=== PATIENT | male | born 1980 | race Caucasian/White ===

== ENCOUNTER 2016-08-08 21:40 | Emergency (ER) | payer OTHER ==
[~2016-08-08] VITALS: Ht 182.9 cm; Wt 96.2 kg
[~2016-08-08 21:40] MED LIST: AGM875T PO; NAPR500T3 PO; TRAM-42 PO
[2016-08-08] MEDS ORDERED: LISI-552 (21:56)
[2016-08-08] MEDS ORDERED: ASPIRIN 81 MG CHEW (CHILDREN'S ASA) PO ONE (22:00)
[2016-08-08 22:07] LABS: BASOPHILS # (AUTO) 0.1 10^3/uL (0.0-0.1); BASOPHILS % (AUTO) 1 % (0-10); EOSINOPHILS # (AUTO) 0.4 10^3/uL (0.0-0.3); EOSINOPHILS % (AUTO) 3 % (0-10); LYMPHOCYTES # (AUTO) 3.9 X 10^3 (1.0-4.0); LYMPHOCYTES % (AUTO) 30 % (12-44); MEAN CORPUSCULAR HEMOGLOBIN 31 PG (25-34); MEAN CORPUSCULAR HGB CONC 35 G/DL (32-36); MEAN CORPUSCULAR VOLUME 89 FL (80-99); MEAN PLATELET VOLUME 9.1 FL (7.4-10.4); MONOCYTES % (AUTO) 8 % (0-12); NEUTROPHILS # (AUTO) 7.5 X 10^3 (1.8-7.8); NEUTROPHILS % (AUTO) 58 % (42-75); PLATELET COUNT 343 10^3/uL (130-400); RED BLOOD COUNT 5.13 10^6/uL (4.35-5.85); RED CELL DISTRIBUTION WIDTH 12.8 % (10.0-14.5); WHITE BLOOD COUNT 12.9 10^3/uL (4.3-11.0)
[2016-08-08 22:17] LABS: PROTHROMBIN TIME PATIENT 12.4 SEC (12.2-14.7)
[2016-08-08 22:29] LABS: ALANINE AMINOTRANSFERASE 86 U/L (0-55); ALBUMIN 4.3 G/DL (3.2-4.5); ANION GAP 14 MMOL/L (5-14); ASPARTATE AMINO TRANSFERASE 37 U/L (5-34); BILIRUBIN,TOTAL 0.2 MG/DL (0.1-1.0); BLOOD UREA NITROGEN 15 MG/DL (7-18); BUN/CREATININE RATIO 9; CALCIUM 9.9 MG/DL (8.5-10.1); CARBON DIOXIDE 19 MMOL/L (21-32); CHLORIDE 106 MMOL/L (98-107); GFR ESTIMATED 47; GLUCOSE 160 MG/DL (70-105); MAGNESIUM 2.5 MG/DL (1.8-2.4); POTASSIUM 4.3 MMOL/L (3.6-5.0); SODIUM 139 MMOL/L (135-145)
[2016-08-08] MEDS ORDERED: NS IV 1000 ML 1,000 ML IV ONE (22:58)
[2016-08-08] MEDS ORDERED: PRD20T PO (23:44)
--- NOTE | 2016-08-08 23:44 | ED Chest Pain ---
General Chief Complaint: Cardiac/General Problems Stated Complaint: SOA CHEST PAIN BLURRED VISION Nursing Triage Note: Patient reports chest pain x 1 week. patient reports was evaluated in ED in [place] on the for same problem and is scheduled for stress test. patient reports having bilaterally blurred vision starting this morning at 1030. patient reports blurry vision is intermittent Nursing Sepsis Screen: No Definite Risk Source: patient Exam Limitations: no limitations History of Present Illness Time seen by provider: 21:41 Initial Comments This 35-year-old gentleman presents to the emergency room with complaints of chest pain. The pain started on August 01 and consists of sharp pain in the left chest. It radiates to the shoulder. He has experienced associated nausea , dizziness, and shortness of air and it is worse with deep breathing. He also had a recent episode of diarrhea. He also reports bilateral blurry vision that is intermittent along with headache. Blurry vision is not present at this time. He has a ill child at home with bronchitis. He reports having some cough and fever. He has been coughing since treated with strep one month ago. Patient was seen for chest pain in [place] recently as well. He has been seen by Dr. Childesr (food production associate) and has a stress test scheduled. Patient admits to smoking and remote use of methamphetamines and THC. He denies alcohol use. He also has chronic right-sided abdominal pain from a mesh hernia repair. Allergies and Home Medications Allergies Coded Allergies: acetaminophen (Unverified Allergy, Unknown, 11/19/14) hydrocodone (Unverified Allergy, Unknown, 11/19/14) Home Medications Lisinopril 20 Mg Tablet, #30 (Reported) Prednisone 20 Mg Tab, 20 MG PO DAILY, #4 Prescribed by: NITESH AUSTIN on 08/08/16 2919 Review of Systems Constitutional: see HPI EENTM: See HPI Respiratory: See HPI Cardiovascular: See HPI Gastrointestinal: See HPI Genitourinary: No Symptoms Reported Musculoskeletal: no symptoms reported Skin: no symptoms reported Psychiatric/Neurological: See HPI Past Oncyfzp-Qrzllc-Jiqeun Hx Patient Social History Alcohol Use: Occasionally Uses Recreational Drug Use: No Smoking Status: Current Everyday Smoker Type Used: Cigarettes Recent Foreign Travel: No Contact w/Someone Who Travel: No Recent Infectious Disease Expo: No Recent Hopitalizations: Yes Surgeries HX Surgeries: Yes (HERNIA REPAIR) Surgeries: Abdominal, Tonsillectomy Respiratory Hx Respiratory Disorders: No Cardiovascular Hx Cardiac Disorders: Yes Cardiac Disorders: Hypertension Neurological Hx Neurological Disorders: No Reproductive System Hx Reproductive Disorders: No Sexually Transmitted Disease: No Genitourinary Hx Genitourinary Disorders: No Gastrointestinal Hx Gastrointestinal Disorders: No Musculoskeletal Hx Musculoskeletal Disorders: No Endocrine Hx Endocrine Disorders: No HEENT HX ENT Disorders: No Cancer Hx Cancer: No Psychosocial Hx Psychiatric Problems: Yes Behavioral Health Disorders: Anxiety, Depression Integumentary HX Skin/Integumentary Disorder: No Blood Transfusions Hx Blood Disorders: No Family Medical History Significant Family History: Heart Disease, DVT/PE, Diabetes, Hypertension Physical Exam Vital Signs Vital Sign - Last 12Hours Capillary Refill : Less Than 3 Seconds General Appearance: No Apparent Distress, WD/WN HEENT: PERRL/EOMI, Normal ENT Inspection Neck: Normal Inspection Respiratory: Lungs Clear, Normal Breath Sounds, No Accessory Muscle Use, No Respiratory Distress, Other (some anterior chest wall tenderness to palpation) Cardiovascular: Regular Rate, Rhythm, No Edema, No Murmur Gastrointestinal: Other (chronic abdominal pain from hernia repair) Extremity: Normal Inspection, No Pedal Edema, Calf Tenderness (right side) Neurologic/Psychiatric: Alert, Oriented x3, No Motor/Sensory Deficits, Normal Mood/Affect, unloader II-XII Norm as Tested Skin: Normal Color, Warm/Dry Progress/Results/Core Measures Results/Orders Lab Results Laboratory Tests Test 08/08/16 22:00 Range/Units White Blood Count 12.9 H 4.3-11.0 10^3/uL Red Blood Count 5.13 4.35-5.85 10^6/uL Hemoglobin 16.0 13.3-17.7 G/DL Hematocrit 46 40-54 % Mean Corpuscular Volume 89 80-99 FL Mean Corpuscular Hemoglobin 31 25-34 PG Mean Corpuscular Hemoglobin Concent 35 32-36 G/DL Red Cell Distribution Width 12.8 10.0-14.5 % Platelet Count 343 130-400 10^3/uL Mean Platelet Volume 9.1 7.4-10.4 FL Neutrophils (%) (Auto) 58 42-75 % Lymphocytes (%) (Auto) 30 12-44 % Monocytes (%) (Auto) 8 0-12 % Eosinophils (%) (Auto) 3 0-10 % Basophils (%) (Auto) 1 0-10 % Neutrophils # (Auto) 7.5 1.8-7.8 X 10^3 Lymphocytes # (Auto) 3.9 1.0-4.0 X 10^3 Monocytes # (Auto) 1.0 0.0-1.0 X 10^3 Eosinophils # (Auto) 0.4 H 0.0-0.3 10^3/uL Basophils # (Auto) 0.1 0.0-0.1 10^3/uL Prothrombin Time 12.4 12.2-14.7 SEC INR Comment 1.0 0.8-1.4 Activated Partial Thromboplast Time 28 24-35 SEC D-Dimer 0.37 0.00-0.49 UG/ML Sodium Level 139 135-145 MMOL/L Potassium Level 4.3 3.6-5.0 MMOL/L Chloride Level 106 98-107 MMOL/L Carbon Dioxide Level 19 L 21-32 MMOL/L Anion Gap 14 5-14 MMOL/L Blood Urea Nitrogen 15 7-18 MG/DL Creatinine 1.70 H 0.60-1.30 MG/DL Estimat Glomerular Filtration Rate 47 BUN/Creatinine Ratio 9 Glucose Level 160 H 70-105 MG/DL Calcium Level 9.9 8.5-10.1 MG/DL Magnesium Level 2.5 H 1.8-2.4 MG/DL Total Bilirubin 0.2 0.1-1.0 MG/DL Aspartate Amino Transf (AST/SGOT) 37 H 5-34 U/L Alanine Aminotransferase (ALT/SGPT) 86 H 0-55 U/L Alkaline Phosphatase 91 40-136 U/L Myoglobin 24.0 10.0-92.0 NG/ML Troponin I < 0.30 <0.30 NG/ML C-Reactive Protein High Sensitivity 0.65 H 0.00-0.50 MG/DL Total Protein 8.0 6.4-8.2 G/DL Albumin 4.3 3.2-4.5 G/DL Micro Results Microbiology 08/08/16 Influenza Types A,B Antigen (KAMRYN) - Final, Complete My Orders Orders - NITESH SULLIVAN MD Cbc With Automated Diff (08/08/16 21:59) Magnesium (08/08/16 21:59) Ekg Tracing (08/08/16 21:59) Cardiac Profile 1 (08/08/16 21:59) Comprehensive Metabolic Panel (08/08/16 21:59) Myoglobin Serum (08/08/16 21:59) Protime With Inr (08/08/16 21:59) Partial Thromboplastin Time (08/08/16 21:59) O2 (08/08/16 21:59) Monitor-Rhythm Ecg Trace Only (08/08/16 21:59) Aspirin Chewable Tablet (Baby Aspirin Ch (08/08/16 22:00) Saline Lock/Iv-Start (08/08/16 21:59) Chest Pa/Lat (2 View) (08/08/16 22:09) Hs C Reactive Protein (08/08/16 22:43) Influenza A And B Antigens (08/08/16 22:44) Ns Iv 1000 Ml (Sodium Chloride 0.9%) (08/08/16 22:58) Fibrin Degradation Products (08/08/16 22:58) Prednisone Tablet (Deltasone Tablet) (08/08/16 23:45) Medications Given in ED Vital Signs/I&O Vital Sign - Last 12Hours 08/08/16 08/08/16 08/08/16 21:50 21:50 23:49 Temp 98.7 Pulse 87 74 Resp 18 20 B/P (MAP) 157/93 Pulse Ox 95 98 O2 Delivery Room Air Room Air Blood Pressure Mean: 114 Progress Note : Progress Note 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 Creatinine was 1.7 with no prior value on his chart. IV fluids were initiated. Prednisone was started for treatment of the chest pain. He is advised to keep his scheduled stress test. Pain was atypical in nature but he was advised to pursue the stress test because of his risk factors. Blurry vision was not present at the time of encounter. He was advised to follow-up with his eye doctor. ECG Initial ECG Impression Date: Aug 08, 2016 Initial ECG Impression Time: 21:57 Initial ECG Rate: 79 Initial ECG Rhythm: Normal Sinus Initial ECG Intervals: Normal Initial ECG Impression: Normal Comment Normal sinus rhythm with no ST elevation or depression. No abnormal intervals or axis deviation. Diagnostic Imaging Diagonstic Imaging: Xray Plain Films/CT/US/NM/MRI: chest Comments Two-view chest x-ray viewed by me and report not available. No acute abnormalities appreciated. Departure Impression Impression: Primary Impression: Chest wall pain Additional Impression: Renal insufficiency Disposition: 01 HOME, SELF-CARE Condition: Improved Departure-Patient Inst. Decision time for Depature: 23:40 Referrals: BANDAR WHEELER (PCP) Primary Care Physician Patient Instructions: Chest Pain That Is Not Caused by the Heart (DC) Add. Discharge Instructions: Use the prednisone as prescribed. Take with food or milk to avoid irritation on your stomach. Avoid taking close to bedtime as that may disrupt sleep. Follow-up with your primary care provider soon as possible. Please also follow through with the planned stress test. This is important due to your family history and smoking history. Work toward quitting smoking as soon as possible. Return to the emergency room if symptoms worsen. You may continue taking your hydrocodone as prescribed but avoid use of NSAIDs such as naproxen or ibuprofen as much as possible. You may continue to take a baby aspirin daily. All discharge instructions reviewed with patient and/or family. Voiced understanding. Scripts Prednisone (Prednisone) 20 Mg Tab 20 MG PO DAILY, #4 TAB Prov: NITESH SULLIVAN MD 08/08/16 Copy Copies To 1: NANCY LAKHANI JOSHUA T MD Aug 08, 2016 23:44
[2016-08-08] MEDS ORDERED: predniSONE 20 MG TAB PO ONE (23:45)
[2016-08-08 23:49] VITALS: BP 150/92
--- NOTE | 2016-08-09 06:38 | Diagnostic Imaging Report ---
INDICATION: Chest pain. COMPARISON: None available. TECHNIQUE: 2 radiographs of the chest dated August 08, 2016 FINDINGS: The cardiac silhouette is within normal limits. No significant pulmonary vascular congestion. The lungs are clear. No pleural effusion. No pneumothorax. No acute osseous abnormality. IMPRESSION: No acute cardiopulmonary abnormality. Dictated by: Dictated on workstation # [id number]
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
== END 2016-08-08 23:52 | disposition home or self-care (01) ==
LOC: EDUNIT# 21:40 → ER 21:44
DX: R07.89 Other chest pain (principal); N28.9 Disorder of kidney and ureter, unspecified; I10 Essential (primary) hypertension; F17.210 Nicotine dependence, cigarettes, uncomplicated
CPT/HCPCS: 36415; 71020; 80053; 83735; 83874; 84484; 85025; 85379; 85610; 85730; 86141; 87804; 93005; 93041; 96360; 96361

== ENCOUNTER 2017-11-12 11:37 | Emergency (ER) | payer OTHER ==
[~2017-11-12] VITALS: Ht 182.9 cm; Wt 99.8 kg
[~2017-11-12 11:37] MED LIST changes: +ASPI-586 PO; +LISI-552; +NAPR-915 PO; -NAPR500T3 PO; +PARO25TA14 PO; +PRD20T PO; +VARE1TAB21 PO
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
[2017-11-12] MEDS ORDERED: fentaNYL INJECTION 100 MCG/2 ML AMP IM ONE (13:00)
--- NOTE | 2017-11-12 13:06 | Diagnostic Imaging Report ---
INDICATION: Low back pain. History of previous, old injury with herniated disc. TECHNIQUE: AP, Lateral and Spot imaging of the lumbar spine CORRELATION STUDY: None FINDINGS: The lumbar spinal curvature and alignment are within normal limits. Vertebral body heights and disc spaces are maintained. No fracture or malalignment is seen. IMPRESSION: Unremarkable radiographic examination of the lumbar spine. Dictated by: Dictated on workstation # [id number]
[2017-11-12] MEDS ORDERED: PRD20T PO (13:15)
[2017-11-12] MEDS ORDERED: TRAM50TA2 PO (13:15)
[2017-11-12 13:23] VITALS: BP 154/97
== END 2017-11-12 13:28 | disposition home or self-care (01) ==
LOC: EDUNIT# 11:37 → ER 11:41
DX: M54.5 Low back pain (principal); E78.00 Pure hypercholesterolemia, unspecified; I10 Essential (primary) hypertension; F41.9 Anxiety disorder, unspecified; F32.9 Major depressive disorder, single episode, unspecified; Z77.22 Contact with and (suspected) exposure to environmental tobacco smoke (acute) (chronic); Z90.89 Acquired absence of other organs; Z82.49 Family history of ischemic heart disease and other diseases of the circulatory system; Z88.6 Allergy status to analgesic agent
CPT/HCPCS: 36415; 72100; 85652; 96372

== ENCOUNTER 2018-04-25 17:25 | Emergency (ER) | payer SELFPAY ==
[~2018-04-25] VITALS: Ht 182.9 cm; Wt 97.5 kg
[~2018-04-25 17:25] MED LIST changes: +TRAM50TA2 PO
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
[2018-04-25] MEDS ORDERED: LOSA25TA6 PO (17:45)
[2018-04-25] MEDS ORDERED: TIZA4CAP8 PO (17:45)
[2018-04-25] MEDS ORDERED: OMEP20CA12 PO (17:45)
[2018-04-25] MEDS ORDERED: PARO12.519 PO (17:45)
--- NOTE | 2018-04-25 18:10 | Diagnostic Imaging Report ---
Clinical indication: Patient kicked a wall and has pain all over ankle and foot. Exams: 1: X-ray of the right ankle, 3 views. 2: X-ray of the right foot, 3 views. Comparison: X-ray of the right ankle dated 01/03/2015. Findings: There is no evidence of acute fracture or dislocation of the right ankle or foot. There are hypertrophic spurs involving the inferior aspects of the lateral malleolus and medial malleolus. There is no significant soft tissue abnormality seen. Impression: 1: X-ray of the right foot and right ankle shows no acute fracture or dislocation. 2: There are hypertrophic spurs involving the medial and lateral malleolar regions. Dictated by: Dictated on workstation # [id number]
--- NOTE | 2018-04-25 18:50 | ED Lower Extremity ---
General Chief Complaint: Lower Extremity Stated Complaint: R ANKLE INJ Nursing Triage Note: R FOOT AND R ANKLE PAIN FROM KICKING WALL TODAY Nursing Sepsis Screen: No Definite Risk Source: patient Exam Limitations: no limitations History of Present Illness Date Seen by Provider: Apr 25, 2018 Time Seen by Provider: 17:30 Initial Comments Patient is 37-year-old male who presents to the emergency room with complaints of right ankle pain and swelling from kicking a wall. Onset: this afternoon Pain/Injury Location: right foot, right ankle Method of Injury: direct blow Modifying Factors: Worse With Movement Allergies and Home Medications Allergies Coded Allergies: No Known Drug Allergies (Unverified , 04/25/18) Home Medications Losartan Potassium 25 Mg Tablet, Unknown Dose PO DAILY, (Reported) Patient Home Medication List Home Medication List Reviewed: Yes Review of Systems Constitutional: no symptoms reported, see HPI Musculoskeletal: see HPI, joint pain, joint swelling All Other Systems Reviewed Negative Unless Noted: Yes Past Mtwvael-Mbaqoa-Kuehtb Hx Past Med/Social Hx: Reviewed Nursing Past Med/Soc Hx Patient Social History Alcohol Use: Denies Use Recreational Drug Use: Yes (POT) Smoking Status: Current Everyday Smoker Type Used: Cigarettes 2nd Hand Smoke Exposure: Yes Recent Foreign Travel: No Contact w/Someone Who Travel: No Recent Infectious Disease Expo: No Recent Hopitalizations: No Immunizations Up To Date Tetanus Booster (TDap): Unknown Seasonal Allergies Seasonal Allergies: No Past Medical History Surgeries: Yes (HERNIA REPAIR) Abdominal, Tonsillectomy Respiratory: No Cardiac: Yes High Cholesterol, Hypertension Neurological: No Reproductive Disorders: No Sexually Transmitted Disease: No Genitourinary: No Gastrointestinal: No Musculoskeletal: No Endocrine: No HEENT: No Cancer: No Psychosocial: Yes Anxiety, Depression Integumentary: No Blood Disorders: No Family Medical History Reviewed Nursing Family Hx Heart Disease, DVT/PE, Diabetes, Hypertension Physical Exam Vital Signs Vital Signs - First Documented 04/25/18 17:30 Temp 97.1 Pulse 98 Resp 18 B/P (MAP) 167/99 (121) Pulse Ox 99 Capillary Refill : Less Than 3 Seconds Height, Weight, BMI Height: 6'0" Weight: 215lbs. oz. 97.808995xk; 24.41 BMI Method:Stated General Appearance: WD/WN, no apparent distress Cardiovascular: normal peripheral pulses, regular rate, rhythm, no edema, no gallop, no JVD, no murmur Respiratory: chest non-tender, lungs clear, normal breath sounds, no respiratory distress, no accessory muscle use Ankles: right ankle pain, right ankle soft tissue tenderness, right ankle swelling Feet: right foot pain, right foot soft tissue tenderness, right foot swelling Neurologic/Psychiatric: alert, normal mood/affect, oriented x 3 Skin: normal color, warm/dry normal capillary refill and distal pulses. Progress/Results/Core Measures Results/Orders My Orders Orders - MICHELLE PARKER Ankle, Right, 3 Views (04/25/18 17:30) Foot, Right, 3 View (04/25/18 17:33) Tramadol Tablet (Ultram Tablet) (04/25/18 18:00) Medications Given in ED Vital Signs/I&O 04/25/18 04/25/18 17:30 18:57 Temp 97.1 97.1 Pulse 98 98 Resp 18 18 B/P (MAP) 167/99 (121) 167/99 (121) Pulse Ox 99 99 Blood Pressure Mean: 121 Progress Progress Note : Time: 18:49 Progress Note I have seen and evaluated the patient. I have informed him of imaging studies. I have placed him in an dayday bandage and air stirrup. He has crutches at home. He agrees with plan of care, plans for discharge. Return precautions were given. Diagnostic Imaging Diagonstic Imaging: Xray Plain Films/CT/US/NM/MRI: ankle (foot) Comments NAME: ISHAN OMALLEY [facility] REC#: [id number] PHYSICIAN: MICHELLE PARKER CC: MICHELLE PARKER; JACK GEIGER MD Page 1 of 1 RADIOLOGY REPORT [facility] [place] CC: MICHELLE PARKER; JACK GEIGER MD Page 1 of 1 RADIOLOGY REPORT NAME: ISHAN OMALLEY [facility] REC#: [id number] PT STATUS: REG ER : 1980 PHYSICIAN: MICHELLE PARKER ADMIT DATE: 04/25/18/ER Signed Date of Exam: 04/25/18 FOOT, RIGHT, 3 VIEW Clinical indication: Patient kicked a wall and has pain all over ankle and foot. Exams: 1: X-ray of the right ankle, 3 views. 2: X-ray of the right foot, 3 views. Comparison: X-ray of the right ankle dated 01/03/2015. Findings: There is no evidence of acute fracture or dislocation of the right ankle or foot. There are hypertrophic spurs involving the inferior aspects of the lateral malleolus and medial malleolus. There is no significant soft tissue abnormality seen. Impression: 1: X-ray of the right foot and right ankle shows no acute fracture or dislocation. 2: There are hypertrophic spurs involving the medial and lateral malleolar regions. Dictated by: Dictated on workstation # [id number] Dict: 04/25/181805 Trans: 04/25/181807 Interpreted by: JACK GEIGER MD Electronically signed by: JACK GEIGER MD 04/25/181807 Reviewed: Reviewed by Me Departure Impression Primary Impression: Right ankle sprain Disposition: 01 HOME, SELF-CARE Condition: Stable/Unchanged Departure-Patient Inst. Decision time for Depature: 18:49 Referrals: [facility]/K (PCP/Family) Primary Care Physician Patient Instructions: Ankle Sprain (DC) Add. Discharge Instructions: You may use ibuprofen and Tylenol as directed by the bottle for pain relief. Wear the Dayday bandage and air stirrup as needed for comfort. You should crutches at home as needed. Return back to the emergency room for any worsening symptoms or concerns as needed. All discharge instructions reviewed with patient and/or family. Voiced understanding. MICHELLE PARKER Apr 25, 2018 18:50
[2018-04-25 18:57] VITALS: BP 167/99
== END 2018-04-25 18:57 | disposition home or self-care (01) ==
LOC: EDUNIT# 17:25 → ER 17:26
DX: S93.401A Sprain of unspecified ligament of right ankle, initial encounter (principal); E78.00 Pure hypercholesterolemia, unspecified; I10 Essential (primary) hypertension; F41.9 Anxiety disorder, unspecified; F32.9 Major depressive disorder, single episode, unspecified; F12.10 Cannabis abuse, uncomplicated; F17.210 Nicotine dependence, cigarettes, uncomplicated; Z98.890 Other specified postprocedural states; Z82.49 Family history of ischemic heart disease and other diseases of the circulatory system; Z90.89 Acquired absence of other organs; W22.01XA Walked into wall, initial encounter
CPT/HCPCS: 73610; 73630

== ENCOUNTER 2018-06-28 17:16 | Emergency (ER) | payer SELFPAY ==
[~2018-06-28] VITALS: Ht 182.9 cm; Wt 95.3 kg
[~2018-06-28 17:16] MED LIST changes: +LOSA25TA41 PO; +OMEP20CA12 PO; +PARO12.519 PO; +TIZA4CAP8 PO
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
--- NOTE | 2018-06-28 17:23 | NUR ---
report given to Kasandra Sorensen
[2018-06-28] MEDS ORDERED: ASPIRIN 81 MG CHEW (CHILDREN'S ASA) PO ONE (17:30)
[2018-06-28] MEDS ORDERED: LOSARTAN 50 MG (COZAAR) TAB PO ONE (17:30)
[2018-06-28] MEDS ORDERED: LORazepam INJ 2 MG/ML (ATIVAN) VIAL IVP ONE (17:30)
[2018-06-28 17:31] LABS: BASOPHILS # (AUTO) 0.1 10^3/uL (0.0-0.1); BASOPHILS % (AUTO) 1 % (0-10); EOSINOPHILS # (AUTO) 0.3 10^3/uL (0.0-0.3); EOSINOPHILS % (AUTO) 2 % (0-10); HEMATOCRIT 47 % (40-54); HEMOGLOBIN 16.8 G/DL (13.3-17.7); LYMPHOCYTES % (AUTO) 29 % (12-44); MEAN CORPUSCULAR HEMOGLOBIN 32 PG (25-34); MEAN CORPUSCULAR HGB CONC 36 G/DL (32-36); MEAN CORPUSCULAR VOLUME 90 FL (80-99); MEAN PLATELET VOLUME 8.7 FL (7.4-10.4); MONOCYTES # (AUTO) 1.4 X 10^3 (0.0-1.0); MONOCYTES % (AUTO) 10 % (0-12); NEUTROPHILS # (AUTO) 8.2 X 10^3 (1.8-7.8); NEUTROPHILS % (AUTO) 58 % (42-75); PLATELET COUNT 334 10^3/uL (130-400); RED CELL DISTRIBUTION WIDTH 12.9 % (10.0-14.5)
[2018-06-28 17:44] LABS: PROTHROMBIN TIME PATIENT 12.8 SEC (12.2-14.7)
--- NOTE | 2018-06-28 17:51 | ED Chest Pain ---
General Chief Complaint: Chest Pain Stated Complaint: CHEST PAIN Nursing Triage Note: PT AMBULATED TO ROOM 9 WITH COMPLAINT OF CP AND SOA. PT STATES SYMPTOMS STARTED LAST NIGHT. PT STATES HE TOOK HIS BLOOD PRESSURE AND IT WAS HIGH. DOES NOT REMEMBER WHAT IT WAS. ALSO COMPLAINING OF HEADACHE AND BLURRED VISION. Nursing Sepsis Screen: No Definite Risk Source: patient Exam Limitations: no limitations (MELODY QUAN STUDENT) History of Present Illness Date Seen by Provider: Jun 28, 2018 Time Seen by Provider: 17:16 Initial Comments 37 y/o M presented for chest pain and shortness of breath which started last night. His chest pain is central and to the left and feels like "someone is sitting on his chest". He also has some blurry vision and a headache. He took his blood pressure at home and noted that it was high. He has a history of high blood pressure but did not take his losartan today because he was not feeling well and the losartan made it worse yesterday. He has not taken any of his medications today. He has had a lot of stress in his life lately, including separation from his spouse. He does smoke cigarettes and marijuana, more often than usual lately. He also agreed to some nausea and diarrhea. Timing/Duration: getting worse, 1-2 days Severity/Quality: severe, pressure Location: substernal, central Radiation: no radiation Activities at Onset: emotional stress Prior CP/Workup: non-cardiac Modifying Factors: worse with breathing; improves with movement, improves with rest Associated Symptoms: No abdominal pain, No diaphoresis, No fever/chills; nausea /vomiting, shortness of breath; No syncope (MELODY QUAN STUDENT) Initial Comments Reports chest pressure is been going on for 3 days related to stress. Timing/Duration: 2-3 days Severity/Quality: moderate, severe, pressure Location: substernal, central Radiation: no radiation Activities at Onset: emotional stress Prior CP/Workup: non-cardiac Modifying Factors: worse with movement; improves with rest Associated Symptoms: No diaphoresis; nausea/vomiting, shortness of breath ( ISHAN HAQ MD) Allergies and Home Medications Allergies Coded Allergies: No Known Drug Allergies (Unverified , 04/25/18) Home Medications Losartan Potassium 25 Mg Tablet, Unknown Dose PO DAILY, (Reported) Patient Home Medication List Home Medication List Reviewed: Yes (MELODY QUAN) Home Medication List Reviewed: Yes (ISHAN HAQ MD) Review of Systems Review of Systems Constitutional: No chills, No diaphoresis, No fever, No malaise EENTM: Blurred Vision; No Eye Pain, No Nose Congestion Respiratory: Denies Cough; Shortness of Air, SOA at Rest; Denies Wheezing Cardiovascular: Chest Pain (central and left sided chest pain ); Denies Edema, Denies Palpitations Gastrointestinal: Denies Abdominal Pain; Diarrhea, Nausea; Denies Vomiting Genitourinary: Denies Burning, Denies Frequency Musculoskeletal: No muscle pain, No muscle cramps Skin: No pruritus, No rash Psychiatric/Neurological: Anxiety, Headache; Denies Tremors, Denies Weakness ( MELODY QUAN) Constitutional: see HPI EENTM: See HPI, Blurred Vision; No Throat Swelling Respiratory: No Symptoms Reported; Denies Cough; Shortness of Air Cardiovascular: Chest Pain (central and left sided chest pain ); Denies Edema Gastrointestinal: Diarrhea, Nausea; Denies Vomiting Genitourinary: No Symptoms Reported Musculoskeletal: no symptoms reported Skin: no symptoms reported (ISHAN HAQ MD) All Other Systems Reviewed Negative Unless Noted: Yes (ISHAN HAQ MD) Past Rletcqd-Zxvhal-Vbzmme Hx Past Med/Social Hx: Reviewed Nursing Past Med/Soc Hx (MELODY QUAN) Past Med/Social Hx: Reviewed Nursing Past Med/Soc Hx (ISHAN HAQ MD) Patient Social History Alcohol Use: Denies Use Recreational Drug Use: Yes Drug of Choice: MARIJUANA Smoking Status: Current Everyday Smoker Type Used: Cigarettes 2nd Hand Smoke Exposure: Yes Recent Foreign Travel: No Contact w/Someone Who Travel: No Recent Infectious Disease Expo: No Recent Hopitalizations: No (MELODY QUAN) Immunizations Up To Date Tetanus Booster (TDap): Unknown (MELODY QUAN) Seasonal Allergies Seasonal Allergies: No (MELODY QUAN) Past Medical History Surgeries: Yes (HERNIA REPAIR) Abdominal, Tonsillectomy Respiratory: No Cardiac: Yes High Cholesterol, Hypertension Neurological: No Reproductive Disorders: No Sexually Transmitted Disease: No Genitourinary: No Gastrointestinal: No Musculoskeletal: No Endocrine: No HEENT: No Cancer: No Psychosocial: Yes Anxiety, Depression Integumentary: No Blood Disorders: No (MELODY QUAN STUDENT) Family Medical History Reviewed Nursing Family Hx (MELODY QUAN) Reviewed Nursing Family Hx (ISHAN HAQ MD) Heart Disease, DVT/PE, Diabetes, Hypertension (MELODY QUAN) Physical Exam Vital Signs Vital Signs - First Documented 06/28/18 17:16 Temp 98.4 Pulse 83 Resp 21 B/P (MAP) 178/113 (134) Pulse Ox 96 O2 Delivery Room Air (ISHAN HAQ MD) Vital Signs Capillary Refill : Less Than 3 Seconds (MELODY QUAN) Height, Weight, BMI Height: 6'0" Weight: 210lbs. oz. [id number]; 24.41 BMI Method:Stated (MELODY QUAN) General Appearance: Anxious, Mild Distress HEENT: PERRL/EOMI, Pharynx Normal Neck: Non Tender, Supple Respiratory: Lungs Clear, Normal Breath Sounds Cardiovascular: Regular Rate, Rhythm, No Murmur Gastrointestinal: Non Tender, Soft Extremity: Normal Range of Motion, Non Tender Neurologic/Psychiatric: Alert, Oriented x3, No Motor/Sensory Deficits Skin: Normal Color, Warm/Dry (ISHAN HAQ MD) Progress/Results/Core Measures Results/Orders Lab Results Laboratory Tests Test 06/28/18 17:24 Range/Units White Blood Count 14.0 H 4.3-11.0 10^3/uL Red Blood Count 5.26 4.35-5.85 10^6/uL Hemoglobin 16.8 13.3-17.7 G/DL Hematocrit 47 40-54 % Mean Corpuscular Volume 90 80-99 FL Mean Corpuscular Hemoglobin 32 25-34 PG Mean Corpuscular Hemoglobin Concent 36 32-36 G/DL Red Cell Distribution Width 12.9 10.0-14.5 % Platelet Count 334 130-400 10^3/uL Mean Platelet Volume 8.7 7.4-10.4 FL Neutrophils (%) (Auto) 58 42-75 % Lymphocytes (%) (Auto) 29 12-44 % Monocytes (%) (Auto) 10 0-12 % Eosinophils (%) (Auto) 2 0-10 % Basophils (%) (Auto) 1 0-10 % Neutrophils # (Auto) 8.2 H 1.8-7.8 X 10^3 Lymphocytes # (Auto) 4.0 1.0-4.0 X 10^3 Monocytes # (Auto) 1.4 H 0.0-1.0 X 10^3 Eosinophils # (Auto) 0.3 0.0-0.3 10^3/uL Basophils # (Auto) 0.1 0.0-0.1 10^3/uL Neutrophils % (Manual) 54 % Lymphocytes % (Manual) 29 % Monocytes % (Manual) 8 % Eosinophils % (Manual) 4 % Basophils % (Manual) 1 % Reactive Lymphocytes 4 % Blood Morphology Comment NORMAL Prothrombin Time 12.8 12.2-14.7 SEC INR Comment 1.0 0.8-1.4 Activated Partial Thromboplast Time 28 24-35 SEC D-Dimer 0.39 0.00-0.49 UG/ML Sodium Level 142 135-145 MMOL/L Potassium Level 4.0 3.6-5.0 MMOL/L Chloride Level 105 98-107 MMOL/L Carbon Dioxide Level 24 21-32 MMOL/L Anion Gap 13 5-14 MMOL/L Blood Urea Nitrogen 10 7-18 MG/DL Creatinine 1.16 0.60-1.30 MG/DL Estimat Glomerular Filtration Rate > 60 BUN/Creatinine Ratio 9 Glucose Level 120 H 70-105 MG/DL Calcium Level 10.3 H 8.5-10.1 MG/DL Corrected Calcium 8.5-10.1 MG/DL Magnesium Level 2.3 1.8-2.4 MG/DL Total Bilirubin 0.5 0.1-1.0 MG/DL Aspartate Amino Transf (AST/SGOT) 42 H 5-34 U/L Alanine Aminotransferase (ALT/SGPT) 86 H 0-55 U/L Alkaline Phosphatase 85 40-136 U/L Myoglobin 50.0 10.0-92.0 NG/ML Troponin I < 0.028 <0.028 NG/ML Total Protein 8.4 H 6.4-8.2 GM/DL Albumin 4.9 H 3.2-4.5 GM/DL Lipase 35 8-78 U/L (ISHAN HAQ MD) My Orders Orders - ISHAN HAQ MD Cbc With Automated Diff (06/28/18 17:21) Magnesium (06/28/18 17:21) Chest 1 View, Ap/Pa Only (06/28/18 17:21) Ekg Tracing (06/28/18 17:21) Cardiac Profile 1 (06/28/18 17:21) Comprehensive Metabolic Panel (06/28/18 17:21) Myoglobin Serum (06/28/18 17:21) Protime With Inr (06/28/18 17:21) Partial Thromboplastin Time (06/28/18 17:21) O2 (06/28/18 17:21) Monitor-Rhythm Ecg Trace Only (06/28/18 17:) Lipid Panel (06/29/18 06:00) Aspirin Chewable Tablet (Baby Aspirin Ch (06/28/18 17:30) Saline Lock/Iv-Start (06/28/18 17:21) Lipase (06/28/18 17:21) Fibrin Degradation Products (06/28/18 17:21) Lorazepam Injection (Ativan Injection) (06/28/18 17:30) Losartan Tablet (Cozaar Tablet) (06/28/18 17:30) Metoprolol Succinate (Xl) Tab (Toprol Xl (06/28/18 17:30) Manual Differential (06/28/18 17:24) Famotidine Injection (Pepcid Injection) (06/28/18 18:36) (ISHAN HAQ MD) Medications Given in ED Current Medications Medications Dose Ordered Sig/Preston Route Start Time Stop Time Status Last Admin Dose Admin Aspirin 324 mg ONCE ONCE PO 06/28/18 17:30 06/28/18 17:31 DC 06/28/18 17:30 324 MG Lorazepam 0.5 mg ONCE ONCE IVP 06/28/18 17:30 06/28/18 17:32 DC 06/28/18 17:41 0.5 MG Losartan Potassium 50 mg ONCE ONCE PO 06/28/18 17:30 06/28/18 17:32 DC 06/28/18 18:01 50 MG Metoprolol Succinate 25 mg ONCE ONCE PO 06/28/18 17:30 06/28/18 17:32 DC 06/28/18 18:01 25 MG (ISHAN HAQ MD) Vital Signs/I&O 06/28/18 17:16 Temp 98.4 Pulse 83 Resp 21 B/P (MAP) 178/113 (134) Pulse Ox 96 O2 Delivery Room Air (ISHAN HAQ MD) Blood Pressure Mean: 134 Progress Progress Note : Progress Note Seen and evaluated. IV, labs, EKG, chest x-ray, ASA 324 mg by mouth, Ativan 0.5 mg IV ordered. Losartan 50 mg by mouth and Toprol-XL 25 mg by mouth ordered. Monitor patient. 183: Overall no acute findings. Improved. We will continue the metoprolol 25 mg by mouth twice a day with his regular medicines. He is instructed to follow-up with his doctor regarding his stress and blood pressure as well as his stomach upset for further evaluation. He states he would. Discharged home with return precautions. Patient verbalize understanding instructions and agreement with plan. is at bedside and agrees. (ISHAN HAQ MD) Initial ECG Impression Date: Jun 28, 2018 Initial ECG Impression Time: 17:17 Initial ECG Rate: 81 Initial ECG Rhythm: Normal Sinus Comment Sinus rhythm. Normal axis. No evidence of STEMI. Interpreted by Dr. Haq. (KOURTNEYYODITMELODY Major STUDENT) Comment Similar to previous of 08/08/16. (ISHAN HAQ MD) Diagnostic Imaging Diagonstic Imaging: Xray Plain Films/CT/US/NM/MRI: chest Comments NAME: ISHAN OMALLEY [facility] REC#: [id number] PT STATUS: REG ER : 1980 PHYSICIAN: ISHAN HAQ MD ADMIT DATE: 06/28/18/ER Draft Date of Exam:06/28/18 CHEST 1 VIEW, AP/PA ONLY INDICATION: Chest pain. TIME OF EXAM: 5:37 PM COMPARISON: Comparison is made with prior chest from 08/08/2016. FINDINGS: The heart size is normal. The pulmonary vascularity is unremarkable. The lungs are clear. No infiltrate, effusion or pneumothorax is detected. IMPRESSION: No acute cardiopulmonary process is detected. Dictated on workstation # [id number] Dict: 06/28/18 175 Trans: 06/28/18 175 [id number] Interpreted by: KELI DOLAN MD Electronically signed by: (ISHAN HAQ MD) Departure Impression Primary Impression: Chest pain Qualified Codes: R07.9 - Chest pain, unspecified Additional Impressions: Gastroesophageal reflux disease Qualified Codes: K21.9 - Gastro-esophageal reflux disease without esophagitis Stress and adjustment reaction Disposition: 01 HOME, SELF-CARE Condition: Stable Departure-Patient Inst. Decision time for Depature: 18:48 (ISHAN HAQ MD) Referrals: [facility] [place] (PCP/Family) Primary Care Physician Patient Instructions: Acid Reflux (Gastroesophageal Reflux Disease), Adult (DC) , Anxiety, Adult (DC), Chest Pain (DC) Add. Discharge Instructions: All discharge instructions reviewed with patient and/or family. Voiced understanding. Follow-up with your doctor this week for recheck and further evaluation. Return for worse pain, fever, vomiting, weakness, breathing problems, sweating or other concerns as needed. You may take Pepcid or the generic famotidine 20 mg once or twice daily as well as your home meds as needed for stomach upset. Talk with your doctor about your stress and anxiety as well as the chest pain. You should also discussed with her doctor regarding your increased stomach acid as you may need further evaluation from a surgeon including upper endoscopy. Scripts Metoprolol Tartrate (Metoprolol Tartrate) 25 Mg Tablet 25 MG PO BID, #28 TAB Prov: ISHAN HAQ MD 06/28/18 MELODY QUAN Jun 28, 2018 17:51 ISHAN HAQ MD Jun 28, 2018 18:05
[2018-06-28 17:52] LABS: ALANINE AMINOTRANSFERASE 86 U/L (0-55); ALBUMIN 4.9 GM/DL (3.2-4.5); ALKALINE PHOSPHATASE 85 U/L (40-136); BILIRUBIN,TOTAL 0.5 MG/DL (0.1-1.0); BUN/CREATININE RATIO 9; CALCIUM 10.3 MG/DL (8.5-10.1); CARBON DIOXIDE 24 MMOL/L (21-32); CHLORIDE 105 MMOL/L (98-107); CREATININE SERUM 1.16 MG/DL (0.60-1.30); GFR ESTIMATED > 60; GLUCOSE 120 MG/DL (70-105); LIPASE 35 U/L (8-78); MAGNESIUM 2.3 MG/DL (1.8-2.4); SODIUM 142 MMOL/L (135-145); TOTAL PROTEIN 8.4 GM/DL (6.4-8.2)
[2018-06-28 18:21] LABS: BASOPHILS % (MANUAL) 1 %; EOSINOPHILS % (MANUAL) 4 %; LYMPHOCYTES % (MANUAL) 29 %; MONOCYTES % (MANUAL) 8 %; NEUTROPHILS % (MANUAL) 54 %; RBC MORPH NORMAL; REACTIVE LYMPHOCYTES 4 %
[2018-06-28] MEDS ORDERED: FAMOTIDINE 20MG/2ML IV (PEPCID) IV STA (18:36)
[2018-06-28] MEDS ORDERED: METO-333 PO (18:46)
[2018-06-28 19:00] VITALS: BP 158/109
== END 2018-06-28 19:00 | disposition home or self-care (01) ==
LOC: EDUNIT# 17:16 → ER 17:17
DX: R07.81 Pleurodynia (principal); K21.9 Gastro-esophageal reflux disease without esophagitis; F43.9 Reaction to severe stress, unspecified; F43.29 Adjustment disorder with other symptoms; E78.00 Pure hypercholesterolemia, unspecified; I10 Essential (primary) hypertension; F41.9 Anxiety disorder, unspecified; F32.9 Major depressive disorder, single episode, unspecified; F17.210 Nicotine dependence, cigarettes, uncomplicated; F12.10 Cannabis abuse, uncomplicated; Z82.49 Family history of ischemic heart disease and other diseases of the circulatory system; Z98.890 Other specified postprocedural states; Z90.89 Acquired absence of other organs
CPT/HCPCS: 36415; 71045; 80053; 83690; 83735; 83874; 84484; 85007; 85027; 85379; 85610; 85730; 93005; 93041; 96374; 96375

== ENCOUNTER 2019-02-06 18:28 | Emergency (ER) | payer SELFPAY ==
[~2019-02-06] VITALS: Ht 182.8 cm; Wt 96.3 kg
[~2019-02-06 18:28] MED LIST changes: +METO-333 PO; -OMEP20CA12 PO; +OMEP20CA13 PO
[2019-02-06 19:33] LABS: BASOPHILS # (AUTO) 0.1 10^3/uL (0.0-0.1); BASOPHILS % (AUTO) 1 % (0-10); EOSINOPHILS # (AUTO) 0.3 10^3/uL (0.0-0.3); EOSINOPHILS % (AUTO) 2 % (0-10); HEMATOCRIT 48 % (40-54); HEMOGLOBIN 16.6 G/DL (13.3-17.7); LYMPHOCYTES # (AUTO) 4.5 X 10^3 (1.0-4.0); LYMPHOCYTES % (AUTO) 32 % (12-44); MEAN CORPUSCULAR HEMOGLOBIN 31 PG (25-34); MEAN CORPUSCULAR HGB CONC 35 G/DL (32-36); MEAN CORPUSCULAR VOLUME 90 FL (80-99); MEAN PLATELET VOLUME 8.9 FL (7.4-10.4); MONOCYTES # (AUTO) 1.2 X 10^3 (0.0-1.0); MONOCYTES % (AUTO) 9 % (0-12); NEUTROPHILS # (AUTO) 7.8 X 10^3 (1.8-7.8); NEUTROPHILS % (AUTO) 56 % (42-75); PLATELET COUNT 344 10^3/uL (130-400); RED CELL DISTRIBUTION WIDTH 12.9 % (10.0-14.5)
[2019-02-06 19:48] LABS: ALANINE AMINOTRANSFERASE 109 U/L (0-55); ALBUMIN 4.7 GM/DL (3.2-4.5); ALKALINE PHOSPHATASE 85 U/L (40-136); BILIRUBIN,TOTAL 0.5 MG/DL (0.1-1.0); BUN/CREATININE RATIO 10; CALCIUM 9.7 MG/DL (8.5-10.1); CARBON DIOXIDE 24 MMOL/L (21-32); CHLORIDE 107 MMOL/L (98-107); CREATININE SERUM 0.94 MG/DL (0.60-1.30); GFR ESTIMATED > 60; GLUCOSE 96 MG/DL (70-105); POTASSIUM 3.9 MMOL/L (3.6-5.0); SODIUM 142 MMOL/L (135-145); TOTAL PROTEIN 8.7 GM/DL (6.4-8.2)
--- NOTE | 2019-02-06 19:58 | ED General ---
General Chief Complaint: General Problems/Pain Stated Complaint: BLURRED VISION, DIZZINESS AND PASSED OUT TODAY Nursing Triage Note: PT AMB TO TRIAGE WITH COMPLAINT OF FEELING WEAK, BLURRED VISION, AND PASSING OUT. STATES HE PASSED OUT TWICE ON WEDNESDAY, IMPROVED OVER THE WEEKEND, BUT STARTED FEELING WORSE TODAY. Nursing Sepsis Screen: No Definite Risk Source of Information: Patient, Spouse Exam Limitations: No Limitations History of Present Illness Date Seen by Provider: Feb 06, 2019 Time Seen by Provider: 19:31 Initial Comments Patient presents to ER by private conveyance with his significant other and multiple complaint. For the past 4 days he's been having nausea, retching without vomiting, gait imbalance being pulled to the right when changing position sitting up standing or trying to walk. He also experiences some neck stiffness for the past month and was seen by primary care as well as the ER and told it was musculoskeletal and put on diclofenac. He has symptoms of a viral upper respiratory infection with nasal congestion, ear fullness. He also has some upper abdominal discomfort. He is not taking anything [id number] for these. No fevers chills. He has had some diarrhea. No abdominal surgeries. He takes blood pressure medicine. His abdominal pain seems to come on along with the nausea after meals that he typically will only eat one meal a day. He eats red meat diet. Allergies and Home Medications Allergies Coded Allergies: No Known Drug Allergies (Unverified , 04/25/18) Home Medications Losartan Potassium 25 Mg Tablet, Unknown Dose PO DAILY, (Reported) Metoprolol Tartrate 25 Mg Tablet, 25 MG PO BID Prescribed by: ISHAN HAQ on 06/28/18 [id number] Patient Home Medication List Home Medication List Reviewed: Yes Review of Systems Review of Systems Constitutional: see HPI; No chills; dizziness; No fever; malaise EENTM: No ear discharge, No ear pain Respiratory: No cough, No short of breath Cardiovascular: No chest pain, No edema Gastrointestinal: see HPI, abdominal pain; No constipation; diarrhea, nausea; No vomiting Genitourinary: No discharge, No dysuria Musculoskeletal: No back pain, No joint pain; muscle stiffness (neck), neck pain Past Dwdwuhc-Yvcdxn-Zwgmsj Hx Patient Social History Alcohol Use: Denies Use Recreational Drug Use: Yes Drug of Choice: MARIJUANA Smoking Status: Current Everyday Smoker Type Used: Cigarettes 2nd Hand Smoke Exposure: Yes Recent Foreign Travel: No Contact w/Someone Who Travel: No Recent Infectious Disease Expo: No Recent Hopitalizations: No Immunizations Up To Date Tetanus Booster (TDap): Unknown Seasonal Allergies Seasonal Allergies: No Past Medical History Surgeries: Yes (HERNIA REPAIR) Abdominal, Tonsillectomy Respiratory: No Cardiac: Yes High Cholesterol, Hypertension Neurological: No Reproductive Disorders: No Sexually Transmitted Disease: No Genitourinary: No Gastrointestinal: No Musculoskeletal: No Endocrine: No HEENT: No Cancer: No Psychosocial: Yes Anxiety, Depression Integumentary: No Blood Disorders: No Family Medical History Heart Disease, DVT/PE, Diabetes, Hypertension Physical Exam Vital Signs Vital Signs - First Documented 02/06/19 18:34 Temp 36.9 Pulse 70 Resp 16 B/P (MAP) 158/102 (120) Pulse Ox 97 O2 Delivery Room Air Capillary Refill : Less Than 3 Seconds Height, Weight, BMI Height: 6'0" Weight: 210lbs. oz. 95.042157ei; 28.00 BMI Method:Stated General Appearance: WD/WN, Anxious, Mild Distress Eyes: Bilateral Eye Normal Inspection, Bilateral Eye PERRL, Bilateral Eye EOMI HEENT: PERRL/EOMI, TM Abnormal (R) (opaque TMs with loss of landmarks. Negative for erythema or injection) Neck: Normal Inspection, Supple, Lymphadenopathy (L), Lymphadenopathy (R) (shotty bilateral cervical anterior lymphadenopathy), Tender Lateral Respiratory: No Accessory Muscle Use, No Respiratory Distress Cardiovascular: Regular Rate, Rhythm, No Edema, Normal Peripheral Pulses Gastrointestinal: Normal Bowel Sounds, Soft, Tenderness (epigastric and right upper quadrant with Giles's sign. Negative for mesenteric signs or psoas sign) Back: Normal Inspection, No Vertebral Tenderness Extremity: Normal Capillary Refill, Normal Inspection, No Pedal Edema Neurologic/Psychiatric: Alert, Oriented x3 Progress/Results/Core Measures Suspected Sepsis Recent Fever Within 48 Hours: No Infection Criteria Present: None New/Unexplained Altered Menta: No Sepsis Screen: No Definite Risk SIRS Temperature: Pulse: 70 Respiratory Rate: 16 Laboratory Tests 02/06/19 19:23: White Blood Count 14.0H Blood Pressure 158 /102 Mean: 120 Laboratory Tests 02/06/19 19:23: Creatinine 0.94, Platelet Count 344, Total Bilirubin 0.5 Results/Orders Lab Results Laboratory Tests Test 02/06/19 19:23 02/06/19 19:32 02/06/19 19:50 Range/Units White Blood Count 14.0 H 4.3-11.0 10^3/uL Red Blood Count 5.35 4.35-5.85 10^6/uL Hemoglobin 16.6 13.3-17.7 G/DL Hematocrit 48 40-54 % Mean Corpuscular Volume 90 80-99 FL Mean Corpuscular Hemoglobin 31 25-34 PG Mean Corpuscular Hemoglobin Concent 35 32-36 G/DL Red Cell Distribution Width 12.9 10.0-14.5 % Platelet Count 344 130-400 10^3/uL Mean Platelet Volume 8.9 7.4-10.4 FL Neutrophils (%) (Auto) 56 42-75 % Lymphocytes (%) (Auto) 32 12-44 % Monocytes (%) (Auto) 9 0-12 % Eosinophils (%) (Auto) 2 0-10 % Basophils (%) (Auto) 1 0-10 % Neutrophils # (Auto) 7.8 1.8-7.8 X 10^3 Lymphocytes # (Auto) 4.5 H 1.0-4.0 X 10^3 Monocytes # (Auto) 1.2 H 0.0-1.0 X 10^3 Eosinophils # (Auto) 0.3 0.0-0.3 10^3/uL Basophils # (Auto) 0.1 0.0-0.1 10^3/uL Sodium Level 142 135-145 MMOL/L Potassium Level 3.9 3.6-5.0 MMOL/L Chloride Level 107 98-107 MMOL/L Carbon Dioxide Level 24 21-32 MMOL/L Anion Gap 11 5-14 MMOL/L Blood Urea Nitrogen 9 7-18 MG/DL Creatinine 0.94 0.60-1.30 MG/DL Estimat Glomerular Filtration Rate > 60 BUN/Creatinine Ratio 10 Glucose Level 96 70-105 MG/DL Calcium Level 9.7 8.5-10.1 MG/DL Corrected Calcium 8.5-10.1 MG/DL Total Bilirubin 0.5 0.1-1.0 MG/DL Aspartate Amino Transf (AST/SGOT) 39 H 5-34 U/L Alanine Aminotransferase (ALT/SGPT) 109 H 0-55 U/L Alkaline Phosphatase 85 40-136 U/L Total Protein 8.7 H 6.4-8.2 GM/DL Albumin 4.7 H 3.2-4.5 GM/DL Lipase 27 8-78 U/L Glucometer 99 70-110 MG/DL Urine Color YELLOW Urine Clarity CLEAR Urine pH 6.5 5-9 Urine Specific [place] 1.010 L 1.016-1.022 Urine Protein NEGATIVE NEGATIVE Urine Glucose (UA) NEGATIVE NEGATIVE Urine Ketones NEGATIVE NEGATIVE Urine Nitrite NEGATIVE NEGATIVE Urine Bilirubin NEGATIVE NEGATIVE Urine Urobilinogen NORMAL NORMAL MG/DL Urine Leukocyte Esterase NEGATIVE NEGATIVE Urine RBC (Auto) NEGATIVE NEGATIVE Urine RBC NONE /HPF Urine WBC NONE /HPF Urine Squamous Epithelial Cells RARE /HPF Urine Crystals NONE /LPF Urine Bacteria NEGATIVE /HPF Urine Casts NONE /LPF Urine Mucus NEGATIVE /LPF Urine Culture Indicated NO Urine Opiates Screen NEGATIVE NEGATIVE Urine Oxycodone Screen NEGATIVE NEGATIVE Urine Methadone Screen NEGATIVE NEGATIVE Urine Propoxyphene Screen NEGATIVE NEGATIVE Urine Barbiturates Screen NEGATIVE NEGATIVE Ur Tricyclic Antidepressants Screen NEGATIVE NEGATIVE Urine Phencyclidine Screen NEGATIVE NEGATIVE Urine Amphetamines Screen NEGATIVE NEGATIVE Urine Methamphetamines Screen NEGATIVE NEGATIVE Urine Benzodiazepines Screen NEGATIVE NEGATIVE Urine Cocaine Screen NEGATIVE NEGATIVE Urine Cannabinoids Screen POSITIVE H NEGATIVE My Orders Orders - CARLA SUAREZ Ed Iv/Invasive Line Start (02/06/19 19:25) Continuous Ekg Monitoring (02/06/19 19:25) Ekg Tracing (02/06/19 19:25) Orthostatic Vital Signs (Adult (02/06/19 19:25) Cbc With Automated Diff (02/06/19 19:25) Accucheck Stat ONCE (02/06/19 19:25) Comprehensive Metabolic Panel (02/06/19 19:25) Ua Culture If Indicated (02/06/19 19:25) Drug Screen Stat (Urine) (02/06/19 19:25) Pantoprazole Injection (Protonix Injecti (02/06/19 20:15) Lipase (02/06/19 20:04) Ketorolac Injection (Toradol Injection) (02/06/19 20:15) Ondansetron Injection (Zofran Injectio (02/06/19 20:15) Ct Abdomen/Pelvis W (02/06/19 20:25) Ed Iv/Invasive Line Start (02/06/19 20:25) Ns Iv 1000 Ml (Sodium Chloride 0.9%) (02/06/19 20:25) Iohexol Injection (Omnipaque 350 Mg/Ml 1 (02/06/19 20:30) Received Contrast (Hold Metformin- Contr (02/06/19 20:30) Sodium Chloride Flush (Catheter Flush Sy (02/06/19 20:30) Ns (Ivpb) (Sodium Chloride 0.9% Ivpb Bag (02/06/19 20:30) Medications Given in ED Current Medications Medications Dose Ordered Sig/[place] Route Start Time Stop Time Status Last Admin Dose Admin Iohexol 100 ml ONCE ONCE IV 02/06/19 20:30 02/06/19 20:31 DC 02/06/19 20:54 100 ML Ketorolac Tromethamine 30 mg ONCE ONCE IVP 02/06/19 20:15 02/06/19 20:16 DC 02/06/19 20:36 30 MG Ondansetron HCl 4 mg ONCE ONCE IVP 02/06/19 20:15 02/06/19 20:16 DC 02/06/19 20:36 4 MG Pantoprazole 40 mg ONCE ONCE IV 02/06/19 20:15 02/06/19 20:16 DC 02/06/19 20:36 40 MG Sodium Chloride 10 ml NEEDED PRN IV 02/06/19 20:30 02/06/19 20:54 10 ML Sodium Chloride 100 ml ONCE ONCE IV 02/06/19 20:30 02/06/19 20:31 DC 02/06/19 20:54 80 ML Vital Signs/I&O 02/06/19 18:34 Temp 36.9 Pulse 70 Resp 16 B/P (MAP) 158/102 (120) Pulse Ox 97 O2 Delivery Room Air Capillary Refill : Less Than 3 Seconds Blood Pressure Mean: 120 Point of Care Testing Finger Stick Blood Glucose: 99 Blood Glucose Action Taken: PROVIDER NOTIFIED Progress Note : Time: 19:59 Progress Note His balance issue seems to be from his otitis mucoid effusion on the right. Plan to put him on topical nasal steroids. His Giles's positive right upper quadrant abdominal pain with nausea that comes after meals could be gallbladder. We'll check some basic labs include a lipase and urinalysis. If these are normal have him set up for a ultrasound outpatient. ECG Initial ECG Impression Date: Feb 06, 2019 Initial ECG Impression Time: 19:16 Initial ECG Rate: 72 Initial ECG Rhythm: Normal Sinus Initial ECG Intervals: Normal Initial ECG Impression: Normal Initial ECG Comparisson: No Previous ECG Available Comment No acute ST elevation or depression. Diagnostic Imaging Diagonstic Imaging: CT (with IV contrast) Plain Films/CT/US/NM/MRI: abdomen, pelvis Comments NAME: ISHAN OMALLEY [facility] REC#: [id number] PT STATUS: REG ER : 1980 PHYSICIAN: CARLA SUAREZ MD ADMIT DATE: 02/06/19/ER Draft Date of Exam:02/06/19 CT ABDOMEN/PELVIS W PROCEDURE: CT abdomen and pelvis with contrast. TECHNIQUE: Multiple contiguous axial images were obtained through the abdomen and pelvis after administration of intravenous contrast. Auto Exposure Controls were utilized during the CT exam to meet ALARA standards for radiation dose reduction. INDICATION: Generalized weakness. Blurred vision. Syncope. COMPARISON: None. FINDINGS: The lung bases are clear. Advanced diffuse fatty infiltration of the liver. The gallbladder, pancreas, spleen, adrenals, kidneys, collecting systems and bladder are negative. Normal appendix. No free intraperitoneal air or fluid. No lymphadenopathy. No evidence of bowel obstruction. Osseous structures are intact. IMPRESSION: 1. No acute CT findings in the abdomen or pelvis. 2. Advanced hepatic steatosis. Dictated on workstation # [id number] Dict: 02/06/192102 Trans: 02/06/192108 [facility] [id number] Interpreted by: KANDIS STANLEY MD Electronically signed by: Reviewed: Reviewed by Me Departure Impression Primary Impression: Otitis media with effusion Qualified Codes: H65.91 - Unspecified nonsuppurative otitis media, right ear Additional Impressions: Labyrinthitis of right ear Abdominal pain Qualified Codes: R10.11 - Right upper quadrant pain Disposition: 01 HOME, SELF-CARE Condition: Stable Departure-Patient Inst. Decision time for Depature: 21:45 Referrals: [facility] (PCP/Family) Primary Care Physician Patient Instructions: Acute Abdomen (Belly Pain), Adult (DC), Labyrinthitis Add. Discharge Instructions: Drink plenty of fluids. 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 Tylenol 1000 g every 8 hours as needed for pain. Ibuprofen 800 mg every 8 hours as needed for pain. Omeprazole 40 mg daily for the next 2 weeks. Follow-up primary care in the next 1-2 weeks to review the results of an ultrasound. Call and set up the appointment outpatient for an ultrasound of your gallbladder this week. All discharge instructions reviewed with patient and/or family. Voiced understanding. Scripts Ondansetron (Ondansetron Odt) 4 Mg Tab.rapdis 4 MG PO Q6H PRN for NAUSEA/VOMITING, #8 TAB 0 Refills Prov: CARLA SUAREZ 02/06/19 Omeprazole (Omeprazole) 40 Mg Capsule.dr 40 MG PO DAILY for 14 Days, #14 CAP Prov: CARLA SUAREZ 02/06/19 Copy Copies To 1: NANCY LAKHANI TITUS J Feb 06, 2019 19:58
[2019-02-06 20:02] LABS: BILIRUBIN,URINE NEGATIVE (NEGATIVE); CLARITY,URINE CLEAR; COLOR,URINE YELLOW; GLUCOSE, URINE (UA) NEGATIVE (NEGATIVE); KETONES,URINE NEGATIVE (NEGATIVE); LEUKOCYTE ESTERASE ,URINE NEGATIVE (NEGATIVE); NITRITE,URINE NEGATIVE (NEGATIVE); PH,URINE 6.5 (5-9); PROTEIN,URINE NEGATIVE (NEGATIVE); UROBILINOGEN,URINE NORMAL (NORMAL)
[2019-02-06 20:10] LABS: BACTERIA,URINE NEGATIVE /HPF; SQUAMOUS EPITHELIAL CELL,UR RARE /HPF
[2019-02-06 20:14] LABS: AMPHETAMINE SCREEN, URINE NEGATIVE (NEGATIVE); BENZODIAZEPINES SCREEN URINE NEGATIVE (NEGATIVE); CANNABINOID SCREEN, URINE POSITIVE (NEGATIVE); COCAINE SCREEN URINE NEGATIVE (NEGATIVE); METHAMPHETAMINE SCREEN URINE S NEGATIVE (NEGATIVE)
[2019-02-06 20:15] LABS: BARBITURATE SCREEN URINE NEGATIVE (NEGATIVE); METHADONE STAT NEGATIVE (NEGATIVE); OPIATE SCREEN URINE NEGATIVE (NEGATIVE); OXYCODONE STAT NEGATIVE (NEGATIVE); PROPOXYPHENE STAT NEGATIVE (NEGATIVE); TRICYCLIC ANTIDEPRESSANTS SCRE NEGATIVE (NEGATIVE)
[2019-02-06] MEDS ORDERED: ONDANSETRON 4 MG/2 ML (SDV) Z0FRAN IVP ONE (20:15)
[2019-02-06] MEDS ORDERED: PANTOPRAZOLE 40 MG (PROTONIX) VIAL IV ONE (20:15)
[2019-02-06] MEDS ORDERED: KETOROLAC 30 MG/ML VIAL IVP ONE (20:15)
[2019-02-06] MEDS ORDERED: NS IV 1000 ML 1,000 ML IV SCH (20:25)
[2019-02-06] MEDS ORDERED: CATHETER FLUSH 10 ML SYR IV PRN (20:30)
[2019-02-06] MEDS ORDERED: IOHEXOL 350 MG/ML 100 ML (OMNIPAQUE 350) VIAL IV ONE (20:30)
[2019-02-06] MEDS ORDERED: NS 100 ML (IVPB) BAG IV ONE (20:30)
[2019-02-06] MEDS ORDERED: HOLD METFORMIN - RECEIVED CONTRAST 20 ML VIAL IV SCH (20:30)
--- NOTE | 2019-02-06 21:09 | Diagnostic Imaging Report ---
PROCEDURE: CT abdomen and pelvis with contrast. TECHNIQUE: Multiple contiguous axial images were obtained through the abdomen and pelvis after administration of intravenous contrast. Auto Exposure Controls were utilized during the CT exam to meet ALARA standards for radiation dose reduction. INDICATION: Generalized weakness. Blurred vision. Syncope. COMPARISON: None. FINDINGS: The lung bases are clear. Advanced diffuse fatty infiltration of the liver. The gallbladder, pancreas, spleen, adrenals, kidneys, collecting systems and bladder are negative. Normal appendix. No free intraperitoneal air or fluid. No lymphadenopathy. No evidence of bowel obstruction. Osseous structures are intact. IMPRESSION: 1. No acute CT findings in the abdomen or pelvis. 2. Advanced hepatic steatosis. Dictated by: Dictated on workstation # [id number]
[2019-02-06] MEDS ORDERED: ONDA4TAB11 PO (21:49)
[2019-02-06] MEDS ORDERED: OMEP40CA36 PO (21:49)
[2019-02-06 22:50] VITALS: BP 158/102
== END 2019-02-06 22:39 | disposition home or self-care (01) ==
LOC: EDUNIT# 18:28 → ER 18:30
DX: H65.91 Unspecified nonsuppurative otitis media, right ear (principal); H83.01 Labyrinthitis, right ear; R10.11 Right upper quadrant pain; R10.13 Epigastric pain; I10 Essential (primary) hypertension; E78.00 Pure hypercholesterolemia, unspecified; F41.9 Anxiety disorder, unspecified; F32.9 Major depressive disorder, single episode, unspecified; F17.210 Nicotine dependence, cigarettes, uncomplicated; Z98.890 Other specified postprocedural states; Z90.89 Acquired absence of other organs; Z82.49 Family history of ischemic heart disease and other diseases of the circulatory system
CPT/HCPCS: 36415; 74177; 80053; 80306; 81000; 82962; 83690; 85025; 93005; 96361; 96374; 96375

== ENCOUNTER 2020-03-10 20:46 | Emergency (ER) | payer SELFPAY ==
[~2020-03-10] VITALS: Ht 182.8 cm; Wt 99.7 kg
[~2020-03-10 20:46] MED LIST changes: -OMEP20CA13 PO; +OMEP20CA18 PO; +OMEP40CA27 PO; +ONDA4TAB11 PO; -TRAM50TA2 PO; +TRM50T PO
--- NOTE | 2020-03-10 21:03 | ED EENT ---
History of Present Illness General Chief Complaint: Nasal Problems Stated Complaint: NOSE BLEEDS Source: patient Exam Limitations: no limitations History of Present Illness Date Seen by Provider: Mar 10, 2020 Time Seen by Provider: 21:01 Initial Comments To ER with 2 nose bleeds each lasting about 20-30 minutes. Both of these were today. He is on fish oil and baby aspirin daily as well as some cholesterol medications and antihypertensives. He has no history of nosebleeds. This was the right nostril each time. States that he soaks about 5 napkins each time his nose bled. It hasn't bled since 7:30. No recent upper respiratory infections or nose trauma does not wear oxygen. Timing/Duration: abrupt Severity: moderate Allergies and Home Medications Allergies Coded Allergies: No Known Drug Allergies (Unverified , 04/25/18) Home Medications Losartan Potassium 25 Mg Tablet, Unknown Dose PO DAILY, (Reported) Metoprolol Tartrate 25 Mg Tablet, 25 MG PO BID Prescribed by: ISHAN HAQ on 06/28/18 184 Omeprazole 40 Mg Capsule.dr, 40 MG PO DAILY Prescribed by: CARLA SUAREZ on 02/06/192148 Ondansetron 4 Mg Tab.rapdis, 4 MG PO Q6H PRN for NAUSEA/VOMITING Prescribed by: CARLA SUAREZ on 02/06/192148 Patient Home Medication List Home Medication List Reviewed: Yes Review of Systems Review of Systems Constitutional: see HPI Eyes: No Symptoms Reported Nose: see HPI, epistaxis Mouth: no symptoms reported Throat: no symptoms reported Respiratory: no symptoms reported Cardiovascular: no symptoms reported Musculoskeletal: no symptoms reported Skin: no symptoms reported Past Lnrrdwd-Xrsati-Fjnreo Hx Patient Social History Drug of Choice: MARIJUANA Type Used: Cigarettes 2nd Hand Smoke Exposure: Yes Recent Foreign Travel: No Contact w/Someone Who Travel: No Recent Hopitalizations: No Immunizations Up To Date Tetanus Booster (TDap): Unknown Seasonal Allergies Seasonal Allergies: No Past Medical History Surgeries: Yes (HERNIA REPAIR) Abdominal, Tonsillectomy Respiratory: No Cardiac: Yes High Cholesterol, Hypertension Neurological: No Reproductive Disorders: No Sexually Transmitted Disease: No Genitourinary: No Gastrointestinal: No Musculoskeletal: No Endocrine: No HEENT: No Cancer: No Psychosocial: Yes Anxiety, Depression Integumentary: No Blood Disorders: No Family Medical History Heart Disease, DVT/PE, Diabetes, Hypertension Physical Exam Vital Signs Vital Signs - First Documented 03/10/20 03/10/20 20:56 21:49 Temp 36.1 Pulse 74 Resp 16 B/P (MAP) 123/100 (108) Pulse Ox 99 O2 Delivery Room Air Height, Weight, BMI Height: 6'0" Weight: 210lbs. oz. 95.840541pk; 28.00 BMI Method:Stated General Appearance: WD/WN, no apparent distress Eyes: bilateral eye normal inspection, bilateral eye PERRL, bilateral eye EOMI Ears: bilateral ear auricle normal, bilateral ear canal normal, bilateral ear TM normal Nose: other (there is no blood in oropharynx or the left nostril. There is a bit of dried blood to the anterior aspect of the septum on the right. There is no large clot or active bleeding visualized.) Mouth/Throat: normal mouth inspection, pharynx normal Neck: non-tender, full range of motion Respiratory: no respiratory distress, no accessory muscle use Neurologic/Psychiatric: alert, normal mood/affect, oriented x 3 Skin: normal color, warm/dry Progress/Results/Core Measures Results/Orders My Orders Departure Communication (Admissions) I discussed with him the possibility of anterior bleed being most likely a posterior nosebleed being a possibility as well. There is no active bleeding, I cannot assure him that he won't go home and begin to bleed again. He is a little hypertensive at 150s over 70s. We will do a dose of Afrin up each nostril at this time. He feels a little lightheaded so I'll check a CBC. Impression Primary Impression: Right-sided epistaxis Disposition: 01 HOME, SELF-CARE Condition: Stable Departure-Patient Inst. Decision time for Depature: 21:07 Referrals: [facility] (PCP/Family) Primary Care Physician Patient Instructions: Nosebleeds (DC) Add. Discharge Instructions: 1. Do not blow your nose. Do not pick your nose. Return to ER for any uncontrollable bleeding. If rebleeding occurs then pinch the nose and hold it tight for about 20 minutes. If that fails to stop the bleeding then return to the emergency room. All discharge instructions reviewed with patient and/or family. Voiced understanding. ALAN VELA APRN Mar 10, 2020 21:03
[2020-03-10] MEDS ORDERED: OXYMETAZOLINE (AFRIN) 0.05% NA 30 ML BTL ONE (21:04)
[2020-03-10 21:24] LABS: HEMOGLOBIN 14.4 g/dL (13.3-17.7); MEAN PLATELET VOLUME 8.9 fL (9.0-12.2); WHITE BLOOD COUNT 13.6 10^3/uL (4.3-11.0)
[2020-03-10 21:49] VITALS: BP 135/99
[2020-03-11] MEDS ORDERED: OXYMETAZOLINE (AFRIN) 0.05% NA 30 ML BTL SCH (09:00)
== END 2020-03-10 21:49 | disposition home or self-care (01) ==
LOC: EDUNIT# 20:46 → ER 20:47
DX: R04.0 Epistaxis (principal); I10 Essential (primary) hypertension; Z82.49 Family history of ischemic heart disease and other diseases of the circulatory system; Z83.3 Family history of diabetes mellitus; Z77.22 Contact with and (suspected) exposure to environmental tobacco smoke (acute) (chronic)
CPT/HCPCS: 36415; 85027

== ENCOUNTER → 2020-07-09 | Outpatient (CLI) | payer MEDICAID ==
[~2020-07-09] MED LIST changes: -LISI-552; +LISI20TA26
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
== END ==
LOC: RAD 15:07
PROVIDERS: ATTEND Physician Assistant
DX: M51.36 Other intervertebral disc degeneration, lumbar region (principal); M53.86 Other specified dorsopathies, lumbar region; G57.93 Unspecified mononeuropathy of bilateral lower limbs
CPT/HCPCS: 72148

== ENCOUNTER 2020-11-12 18:20 | Emergency (ER) | payer MEDICAID ==
[~2020-11-12] VITALS: Ht 182.8 cm; Wt 95.4 kg
[~2020-11-12 18:20] MED LIST changes: -OMEP40CA27 PO; +OMEP40CA6 PO
--- NOTE | 2020-11-12 18:48 | ED Integumentary General ---
General Chief Complaint: Skin/Wound Problems Stated Complaint: BOIL ON L BUTT CHEEK Nursing Triage Note: AMB TO ED WITH . PATIENT REPORTS THAT HAS HAD AEA FJOR 2 WEEKS IN BUTTOCKS AREA HAS GOT WORSE THE LAST 2 DAYS UNABLE TO SIT. Source: patient Exam Limitations: no limitations History of Present Illness Date Seen by Provider: Nov 12, 2020 Time Seen by Provider: 18:33 Initial Comments This is a well-appearing 40-year-old male who presents to the ER with complaints of abscess near his rectum x2.5 weeks. States pain is progressively worsened and today he can no longer take it. Has taken ibuprofen however this is no longer helping. Denies fever, chills, cough, shortness of breath, nausea, vomiting, abdominal pain. Allergies and Home Medications Allergies Coded Allergies: No Known Drug Allergies (Unverified , 04/25/18) Home Medications Losartan Potassium 25 Mg Tablet, Unknown Dose PO DAILY, (Reported) Metoprolol Tartrate 25 Mg Tablet, 25 MG PO BID Prescribed by: ISHAN HAQ on 06/28/181845 Omeprazole 40 Mg Capsule.dr, 40 MG PO DAILY Prescribed by: CARLA SUAREZ on 02/06/192148 Ondansetron 4 Mg Tab.rapdis, 4 MG PO Q6H PRN for NAUSEA/VOMITING Prescribed by: CARLA SUAREZ on 02/06/192148 Sulfamethoxazole/Trimethoprim 1 Each Tablet, 1 EACH PO BID Prescribed by: ROLA MORENO on 11/12/202018 Patient Home Medication List Home Medication List Reviewed: Yes Review of Systems Review of Systems Constitutional: no symptoms reported EENTM: no symptoms reported Respiratory: no symptoms reported Cardiovascular: no symptoms reported Gastrointestinal: no symptoms reported Genitourinary: no symptoms reported Musculoskeletal: no symptoms reported Skin: see HPI Psychiatric/Neurological: No Symptoms Reported Endocrine: No Symptoms Reported Hematologic/Lymphatic: No Symptoms Reported Past Dewvinj-Kiagta-Neypac Hx Patient Social History Tobacco Use?: Yes Smoking Status: Current Everyday Smoker Substance use?: Yes Substance type: Marijuana Substance frequency: Once in a while Pt feels they are or have been: No Immunizations Up To Date Tetanus Booster (TDap): Unknown Influenza Vaccine Up-to-Date: No; Not Current Seasonal Allergies Seasonal Allergies: No Past Medical History Surgeries: Yes (HERNIA REPAIR) Abdominal, Tonsillectomy Respiratory: No Cardiac: Yes High Cholesterol, Hypertension Neurological: No Reproductive Disorders: No Sexually Transmitted Disease: No Genitourinary: No Gastrointestinal: Yes Gastrointestinal Bleed Musculoskeletal: No Endocrine: No HEENT: No Cancer: No Psychosocial: Yes Anxiety, Depression Integumentary: No Blood Disorders: No Family Medical History Heart Disease, DVT/PE, Diabetes, Hypertension Physical Exam Vital Signs Vital Signs - First Documented 11/12/20 18:29 Temp 36.8 Pulse 93 Resp 18 B/P (MAP) 147/97 (114) Pulse Ox 97 O2 Delivery Room Air Capillary Refill : Less Than 3 Seconds General Appearance: WD/WN, no apparent distress HEENT: normal ENT inspection, pharynx normal Neck: full range of motion, normal inspection Cardiovascular: regular rate, rhythm, no murmur Respiratory: lungs clear, normal breath sounds Gastrointestinal: normal bowel sounds, non tender, soft Back: normal inspection Extremities: normal range of motion, normal inspection Neurologic/Psychiatric: no motor/sensory deficits, alert, normal mood/affect, oriented x 3 Skin: normal color, warm/dry Skin Problem Location: other (Left gluteal fold near rectum) Skin Problem Character: abscess (1.5x2cm soft tissue abscess with surrounding erythema ), erythema Lymphatic: no adenopathy Procedures/Interventions I&D : Blade Size: 11 I & D Procedure: betadine prep, Wound Packing Packing/Drain: Idoform 1/2 Progress Reviewed risk/benefits of I&D procedure. Verbal consent obtained. Cleansed site with Iodine prep, instilled Lidocaine 1% 3cc locally to abscess, made 3mm incision and expressed moderate amount of grayish discharge. Irrigated with NS 30cc and packed with 1/2 in idoform packing. Packing tail secured with tape. Tolerated procedure well. Progress/Results/Core Measures Results/Orders Lab Results Laboratory Tests Test 11/12/20 18:50 Range/Units White Blood Count 14.4 H 4.3-11.0 10^3/uL Red Blood Count 4.57 4.30-5.52 10^6/uL Hemoglobin 14.2 13.3-17.7 g/dL Hematocrit 41 40-54 % Mean Corpuscular Volume 91 80-99 fL Mean Corpuscular Hemoglobin 31 25-34 pg Mean Corpuscular Hemoglobin Concent 34 32-36 g/dL Red Cell Distribution Width 12.2 10.0-14.5 % Platelet Count 288 130-400 10^3/uL Mean Platelet Volume 9.4 9.0-12.2 fL Immature Granulocyte % (Auto) 1 % Neutrophils (%) (Auto) 64 42-75 % Lymphocytes (%) (Auto) 24 12-44 % Monocytes (%) (Auto) 8 0-12 % Eosinophils (%) (Auto) 2 0-10 % Basophils (%) (Auto) 1 0-10 % Neutrophils # (Auto) 9.3 H 1.8-7.8 10^3/uL Lymphocytes # (Auto) 3.5 1.0-4.0 10^3/uL Monocytes # (Auto) 1.1 H 0.0-1.0 10^3/uL Eosinophils # (Auto) 0.3 0.0-0.3 10^3/uL Basophils # (Auto) 0.1 0.0-0.1 10^3/uL Immature Granulocyte # (Auto) 0.1 0.0-0.1 10^3/uL Neutrophils % (Manual) 74 % Lymphocytes % (Manual) 19 % Monocytes % (Manual) 6 % Eosinophils % (Manual) 1 % Blood Morphology Comment NORMAL Sodium Level 142 135-145 MMOL/L Potassium Level 3.7 3.6-5.0 MMOL/L Chloride Level 106 98-107 MMOL/L Carbon Dioxide Level 23 21-32 MMOL/L Anion Gap 13 5-14 MMOL/L Blood Urea Nitrogen 11 7-18 MG/DL Creatinine 1.04 0.60-1.30 MG/DL Estimat Glomerular Filtration Rate > 60 BUN/Creatinine Ratio 11 Glucose Level 168 H 70-105 MG/DL Calcium Level 9.6 8.5-10.1 MG/DL Corrected Calcium 9.4 8.5-10.1 MG/DL Total Bilirubin 0.6 0.1-1.0 MG/DL Aspartate Amino Transf (AST/SGOT) 66 H 5-34 U/L Alanine Aminotransferase (ALT/SGPT) 123 H 0-55 U/L Alkaline Phosphatase 95 40-136 U/L Total Protein 7.9 6.4-8.2 GM/DL Albumin 4.3 3.2-4.5 GM/DL Micro Results Microbiology 11/12/20 Gram Stain - Final, Resulted 11/12/20 Wound Culture, Resulted Pending My Orders Orders - ROLA MORENO DENTAL SCHEDULING COORDINATOR Ed Iv/Invasive Line Start (11/12/20 18:48) Cbc With Automated Diff (11/12/20 18:48) Comprehensive Metabolic Panel (11/12/20 18:48) Ct Abdomen/Pelvis W (11/12/20 18:48) Manual Differential (11/12/20 18:50) Iohexol Injection (Omnipaque 350 Mg/Ml 1 (11/12/20 19:15) Received Contrast (Hold Metformin- Contr (11/12/20 19:15) Ns (Ivpb) (Sodium Chloride 0.9% Ivpb Bag (11/12/20 19:15) Fentanyl Inj (Sublimaze Injection) (11/12/20 19:30) Lidocaine 1% Inj 20 Ml (Xylocaine 1% Inj (11/12/20 19:30) Sulfamethoxazole/Trimet Ds Tab (Bactrim (11/12/20 20:00) Wound Culture (11/12/20 20:05) Medications Given in ED Vital Signs/I&O 11/12/20 11/12/20 18:29 20:26 Temp 36.8 36.8 Pulse 93 93 Resp 18 18 B/P (MAP) 147/97 (114) 147/97 (114) Pulse Ox 97 97 O2 Delivery Room Air Room Air Blood Pressure Mean: 114 Progress Progress Note : Progress Note Patient examined and in no acute distress. He is noted to have abscess on his left gluteal fold near his rectum, draining white/wang discharge. Will obtain basic labs and CT abdomen pelvis with contrast to evaluate extent of abscess. CT abd/pelvis shows findings are concerning for soft tissue abscess. No extension into the pelvic cavity or osseous involvement. Given first dose of Bactrim in ED. I&D performed. Wound culture pending. Orders given for daily wound packing. He is to schedule close follow up with his primary care ph ysician. Reviewed discharge POC and he is agreeable with plan. Diagnostic Imaging Diagonstic Imaging: CT Plain Films/CT/US/NM/MRI: abdomen, pelvis Comments [facility] [place], [place] NAME: ISHAN OMALLEY Mulu [employer] REC#: [id number] PT STATUS: REG ER : 1980 PHYSICIAN: ROLA MORENO DENTAL SCHEDULING COORDINATOR ADMIT DATE: 11/12/20/ER Signed Date of Exam:11/12/20 CT ABDOMEN/PELVIS W EXAMINATION: CT abdomen and pelvis with intravenous contrast. TECHNIQUE: Multiple contiguous axial images were obtained through the abdomen and pelvis after the uneventful administration of intravenous contrast. All CT scans use one or more of the following dose optimizing techniques: automated exposure control, MA and/or KvP adjustment based on patient size and exam type or iterative reconstruction. HISTORY: Concern for perirectal abscess. Sore area in the buttocks for the last 2 weeks. Unable to sit. COMPARISON: 02/06/2019. FINDINGS: The heart is unremarkable. The included lung bases are clear. There is hepatic steatosis. Stable fatty sparing is seen in the gallbladder fossa. No focal masses seen. The gallbladder is decompressed. The portal vein is patent. The spleen, pancreas, adrenal glands, and kidneys have a normal appearance. There is no pathologically enlarged mesenteric or retroperitoneal adenopathy. The bowel loops are nondilated. The appendix is visualized in the right lower quadrant and has a normal appearance. There is no free fluid or free air. No acute osseous abnormalities. Ureters and bladder are grossly normal. There is no free air, loculated collection, or adenopathy in the pelvis. A loculated collection is seen in the medial aspect of the left gluteal region measuring 2.2 x 1.8 cm. There are surrounding inflammatory changes. No evidence of extension into the pelvic cavity. No osseous involvement. IMPRESSION: 1. Loculated collection in the medial aspect of the left gluteal region with surrounding cellulitis. Findings are concerning for soft tissue abscess. No extension into the pelvic cavity or osseous involvement. 2. Hepatic steatosis. Dictated by: Dictated on workstation # [id number] Dict: 11/12/201936 Trans: 11/12/201945 [facility] [id number] Interpreted by: JONO ESCALANTE DO Electronically signed by: JONO ESCALANTE DO 11/12/201945 Reviewed: Reviewed by Co Departure Impression Primary Impression: Abscess, gluteal, left Disposition: 01 HOME, SELF-CARE Condition: Improved Departure-Patient Inst. Decision time for Depature: 20:18 Referrals: [facility]/K (PCP/Family) Primary Care Physician Patient Instructions: Abscess Incision and Drainage ED Add. Discharge Instructions: Plan: 1. Take antibiotics as directed and complete full course. 2. May take Tylenol or Ibuprofen as needed for pain per package. 3. Return to ER for daily packing dressing changes. 4. Call your primary care provider tomorrow for followup. 5. Return to ER for any new, concerning, or worsening symptoms. All discharge instructions reviewed with patient and/or family. Voiced understanding. Scripts Sulfamethoxazole/Trimethoprim (Bactrim Ds Tablet) 1 Each Tablet 1 EACH PO BID for 7 Days, #14 TAB 0 Refills Prov: ROLA MORENO APRN 11/12/20 Copy Copies To 1: [facility]/ROLA COE DENTAL SCHEDULING COORDINATOR Nov 12, 2020 18:47
[2020-11-12 18:57] LABS: BASOPHILS # (AUTO) 0.1 10^3/uL (0.0-0.1); BASOPHILS % (AUTO) 1 % (0-10); EOSINOPHILS # (AUTO) 0.3 10^3/uL (0.0-0.3); EOSINOPHILS % (AUTO) 2 % (0-10); HEMATOCRIT 41 % (40-54); HEMOGLOBIN 14.2 g/dL (13.3-17.7); LYMPHOCYTES # (AUTO) 3.5 10^3/uL (1.0-4.0); LYMPHOCYTES % (AUTO) 24 % (12-44); MEAN CORPUSCULAR HEMOGLOBIN 31 pg (25-34); MEAN CORPUSCULAR HGB CONC 34 g/dL (32-36); MEAN CORPUSCULAR VOLUME 91 fL (80-99); MEAN PLATELET VOLUME 9.4 fL (9.0-12.2); MONOCYTES # (AUTO) 1.1 10^3/uL (0.0-1.0); MONOCYTES % (AUTO) 8 % (0-12); NEUTROPHILS # (AUTO) 9.3 10^3/uL (1.8-7.8); NEUTROPHILS % (AUTO) 64 % (42-75); PLATELET COUNT 288 10^3/uL (130-400); WHITE BLOOD COUNT 14.4 10^3/uL (4.3-11.0)
[2020-11-12 19:08] LABS: ALBUMIN 4.3 GM/DL (3.2-4.5); CHLORIDE 106 MMOL/L (98-107); POTASSIUM 3.7 MMOL/L (3.6-5.0); SODIUM 142 MMOL/L (135-145)
[2020-11-12 19:09] LABS: CALCIUM 9.6 MG/DL (8.5-10.1)
[2020-11-12 19:10] LABS: GLUCOSE 168 MG/DL (70-105); TOTAL PROTEIN 7.9 GM/DL (6.4-8.2)
[2020-11-12 19:11] LABS: CARBON DIOXIDE 23 MMOL/L (21-32)
[2020-11-12 19:12] LABS: BILIRUBIN,TOTAL 0.6 MG/DL (0.1-1.0)
[2020-11-12 19:14] LABS: ALKALINE PHOSPHATASE 95 U/L (40-136); CREATININE SERUM 1.04 MG/DL (0.60-1.30); GFR ESTIMATED > 60
[2020-11-12 19:15] LABS: BUN/CREATININE RATIO 11
[2020-11-12] MEDS ORDERED: NS 100 ML (IVPB) BAG IV ONE (19:15)
[2020-11-12] MEDS ORDERED: IOHEXOL 350 MG/ML 100 ML (OMNIPAQUE 350) VIAL IV ONE (19:15)
[2020-11-12] MEDS ORDERED: HOLD METFORMIN - RECEIVED CONTRAST 20 ML VIAL IV SCH (19:15)
[2020-11-12 19:16] LABS: EOSINOPHILS % (MANUAL) 1 %; LYMPHOCYTES % (MANUAL) 19 %; MONOCYTES % (MANUAL) 6 %; NEUTROPHILS % (MANUAL) 74 %; RBC MORPH NORMAL
[2020-11-12 19:17] LABS: ALANINE AMINOTRANSFERASE 123 U/L (0-55)
[2020-11-12] MEDS ORDERED: LIDOCAINE 1% INJ 20 ML 20 ML VIAL INJ ONE (19:30)
[2020-11-12] MEDS ORDERED: fentaNYL INJ 100 MCG/2 ML AMP IVP ONE (19:30)
--- NOTE | 2020-11-12 19:46 | Diagnostic Imaging Report ---
EXAMINATION: CT abdomen and pelvis with intravenous contrast. TECHNIQUE: Multiple contiguous axial images were obtained through the abdomen and pelvis after the uneventful administration of intravenous contrast. All CT scans use one or more of the following dose optimizing techniques: automated exposure control, MA and/or KvP adjustment based on patient size and exam type or iterative reconstruction. HISTORY: Concern for perirectal abscess. Sore area in the buttocks for the last 2 weeks. Unable to sit. COMPARISON: 02/06/2019. FINDINGS: The heart is unremarkable. The included lung bases are clear. There is hepatic steatosis. Stable fatty sparing is seen in the gallbladder fossa. No focal masses seen. The gallbladder is decompressed. The portal vein is patent. The spleen, pancreas, adrenal glands, and kidneys have a normal appearance. There is no pathologically enlarged mesenteric or retroperitoneal adenopathy. The bowel loops are nondilated. The appendix is visualized in the right lower quadrant and has a normal appearance. There is no free fluid or free air. No acute osseous abnormalities. Ureters and bladder are grossly normal. There is no free air, loculated collection, or adenopathy in the pelvis. A loculated collection is seen in the medial aspect of the left gluteal region measuring 2.2 x 1.8 cm. There are surrounding inflammatory changes. No evidence of extension into the pelvic cavity. No osseous involvement. IMPRESSION: 1. Loculated collection in the medial aspect of the left gluteal region with surrounding cellulitis. Findings are concerning for soft tissue abscess. No extension into the pelvic cavity or osseous involvement. 2. Hepatic steatosis. Dictated by: Dictated on workstation # [id number]
[2020-11-12] MEDS ORDERED: TRIM/SULFAMETH 160/800 (SEPTRA DS) TAB PO ONE (20:00)
[2020-11-12] MEDS ORDERED: SULF1TAB35 PO (20:19)
[2020-11-12 20:26] VITALS: BP 147/97
== END 2020-11-12 20:26 | disposition home or self-care (01) ==
LOC: EDUNIT# 18:20 → ER 18:24
DX: L02.31 Cutaneous abscess of buttock (principal); I10 Essential (primary) hypertension; F17.210 Nicotine dependence, cigarettes, uncomplicated
CPT/HCPCS: 36415; 45020; 74177; 80053; 85007; 85027; 87070; 87077; 87205

== ENCOUNTER 2020-11-13 12:42 | Emergency (ER) | payer MEDICAID ==
[~2020-11-13] VITALS: Ht 182 cm; Wt 95.4 kg
[~2020-11-13 12:42] MED LIST changes: +SULF1TAB35 PO
[2020-11-13 13:09] VITALS: BP 157/109
== END 2020-11-13 13:30 | disposition home or self-care (01) ==
LOC: EDUNIT# 12:42 → ER 12:44
DX: Z48.00 Encounter for change or removal of nonsurgical wound dressing (principal)
CPT/HCPCS: 99282

== ENCOUNTER 2021-07-18 21:53 | Emergency (ER) | payer SELFPAY ==
[~2021-07-18] VITALS: Ht 182.8 cm; Wt 97.5 kg
[~2021-07-18 21:53] MED LIST changes: -PARO12.519 PO; +PARO12.528 PO; -SULF1TAB35 PO; +SULF1TAB38 PO
[2021-07-18 22:04] VITALS: BP 168/94
--- NOTE | 2021-07-18 22:06 | ED Upper Extremity ---
General Chief Complaint: Upper Extremity Stated Complaint: SWOLLEN HAND Source: patient (JATINDER PHAM MED STUDENT) History of Present Illness Date Seen by Provider: Jul 18, 2021 Time Seen by Provider: 09:55 Initial Comments Mr. Holcomb is a 40 yo male that presents today due to R hand pain. States he punched a table about 2 hours again and is pretty sure that he broke his hand. He has broken his L hand the same way before and this is like that time. He has been icing his hand in 15 mins intervals since. His swelling is in the metatarsal area of digit 5. He is able to bend his fingers with pain. States he can still feel pressure in his fingertips. He is a daily smoker, does not drink alcohol. Does smoke marijuana, he smoked a bowl before coming into the ER tonight. He does not have any other complaints. (JATINDER PHAM MED STUDENT) Onset: just prior to arrival Severity: moderate Pain/Injury Location: right hand Method of Injury: direct blow Modifying Factors: Worse With Movement (ALAN VELA APRN) Allergies and Home Medications Allergies Coded Allergies: No Known Drug Allergies (Unverified , 04/25/18) Patient Home Medication List Home Medication List Reviewed: Yes (ALAN VELA APRN) Aspirin (Aspir 81) 81 Mg Tablet., 81 MG PO, (Reported) Entered as Reported by: WILLEM GRACE on 08/31/172141 Hydrocodone/Acetaminophen (Hydrocodone-Acetamin 5-325 mg) 1 Each Tablet, 1 TAB PO Q4H PRN for PAIN-MODERATE (5-7) Prescribed by: ALAN VELA on 07/18/21 2235 Lisinopril (Lisinopril) 20 Mg Tablet, (Reported) Entered as Reported by: TICO ARTEAGA on 08/08/16 2156 Losartan Potassium (Losartan Potassium) 25 Mg Tablet, Unknown Dose PO DAILY, (Reported) Entered as Reported by: DEANNA PARKER on 04/25/18 1745 Metoprolol Tartrate (Metoprolol Tartrate) 25 Mg Tablet, 25 MG PO BID Prescribed by: ISHAN HAQ on 06/28/18 1846 Omeprazole (Omeprazole) 20 Mg Capsule., Unknown Dose PO, (Reported) Entered as Reported by: DEANNA PARKER on 12/17/18 1745 Omeprazole (Omeprazole) 40 Mg Capsule.dr, 40 MG PO DAILY Prescribed by: CARLA SUAREZ on 02/06/192148 Ondansetron (Ondansetron Odt) 4 Mg Tab.rapdis, 4 MG PO Q6H PRN for NAUSEA/VOMITING Prescribed by: CARLA SUAREZ on 02/06/192148 Paroxetine HCl (Paroxetine Cr) 25 Mg Tab.er.24h, Unknown Dose PO, (Reported) Entered as Reported by: WILLEM GRACE on 08/31/172141 Paroxetine HCl (Paroxetine Cr) 12.5 Mg Tab.er.24h, Unknown Dose PO, (Reported) Entered as Reported by: DEANNA PARKER on 04/25/181744 Sulfamethoxazole/Trimethoprim (Bactrim Ds Tablet) 1 Each Tablet, 1 EACH PO BID Prescribed by: ROLA MORENO on 11/12/202018 Tizanidine HCl (Tizanidine HCl) 4 Mg Capsule, Unknown Dose PO, (Reported) Entered as Reported by: DEANNA PARKER on 04/25/181744 Review of Systems Constitutional: No chills, No fever EENTM: No hearing loss, No vision loss Respiratory: No cough, No short of breath Cardiovascular: No chest pain, No edema, No palpitations Gastrointestinal: No abdominal pain, No constipation, No diarrhea, No melena, No nausea, No vomiting Genitourinary: No dysuria, No frequency Musculoskeletal: No joint pain, No joint swelling Skin: No pruritus, No rash (whistleBox STUDENT) Past Amcfiod-Ijqgyl-Sknibr Hx Immunizations Up To Date Tetanus Booster (TDap): Unknown (whistleBox STUDENT) Seasonal Allergies Seasonal Allergies: No (whistleBox STUDENT) Past Medical History Surgeries: Yes (HERNIA REPAIR) Abdominal, Tonsillectomy Respiratory: No Cardiac: Yes High Cholesterol, Hypertension Neurological: No Reproductive Disorders: No Sexually Transmitted Disease: No Genitourinary: No Gastrointestinal: Yes Gastrointestinal Bleed Musculoskeletal: No Endocrine: No HEENT: No Cancer: No Psychosocial: Yes Anxiety, Depression Integumentary: No Blood Disorders: No (whistleBox STUDENT) Family Medical History Heart Disease, DVT/PE, Diabetes, Hypertension (ANKIT,JATINDER MED STUDENT) Physical Exam Vital Signs Vital Signs - First Documented 07/18/21 22:04 Temp 36.4 Pulse 79 Resp 16 B/P (MAP) 168/94 (118) Pulse Ox 97 (ALAN VELA APRN) Vital Signs Capillary Refill : (JATINDER PHAM MED STUDENT) Height, Weight, BMI Height: 6'0" Weight: 210lbs. oz. 95.976312qk; 28.00 BMI Method:Stated General Appearance: WD/WN, no apparent distress HEENT: PERRL/EOMI Cardiovascular: regular rate, rhythm, no edema, no murmur Respiratory: chest non-tender, lungs clear, normal breath sounds Gastrointestinal: normal bowel sounds, non tender, soft Hand: Right (Swelling over metatarsal area of finger 5. Is able to close hands with pain. Sensation intact.) Neurologic/Psychiatric: alert, normal mood/affect, oriented x 3 Skin: normal color, warm/dry (JATINDER PHAM MED STUDENT) Progress/Results/Core Measures Results/Orders My Orders Orders - ALAN VELA APRN Hand, Right, 3 Views (07/18/21 22:04) Rx-Hydrocodone/Apap 5-325 Mg (Rx-Vicodin (07/18/21 22:45) (ALAN VELA APRN) Vital Signs/I&O 07/18/21 22:04 Temp 36.4 Pulse 79 Resp 16 B/P (MAP) 168/94 (118) Pulse Ox 97 (ALAN VELA APRN) Departure Communication (Admissions) I have seen the patient along with medical student Jatinder and agree with the assessment and plan of care. He is neurovascularly intact at the fingertips. He has some swelling over the dorsal aspect of the distal fourth and fifth metacarpals. No broken skin or open wound. He was placed in an ulnar gutter style splint with the wrist semiextended and the fingers flexed. This was done using 4 inch Ortho-Glass. (ALAN VELA APRN) Impression Primary Impression: Boxers fracture Disposition: 01 HOME, SELF-CARE Condition: Stable Departure-Patient Inst. Decision time for Depature: 22:33 (ALAN VELA APRN) Referrals: [facility]/K (PCP/Family) Primary Care Physician GE NUNO MD,JORGE FREEMAN,JENNIFER Fall MD Patient Instructions: Boxer's Fracture (DC) Add. Discharge Instructions: 1. Keep the hand in the splint at all times until you follow-up with orthopedics. Call an orthopedic surgeon of your choosing on Wednesday to make an appointment to be seen. Return to ER for any worsening. All discharge instructions reviewed with patient and/or family. Voiced understanding. Scripts Hydrocodone/Acetaminophen (Hydrocodone-Acetamin 5-325 mg) 1 Each Tablet 1 TAB PO Q4H PRN for PAIN-MODERATE (5-7), #10 TAB Prov: ALAN VELA APRN 07/18/21 JATINDER PHAM MED STUDENT Jul 18, 2021 22:06 ALAN VELA APRN Jul 18, 2021 22:35
[2021-07-18] MEDS ORDERED: ACHD5005 PO (22:35)
--- NOTE | 2021-07-18 22:45 | Diagnostic Imaging Report ---
INDICATION: Pain and swelling status post injury. COMPARISON: None. FINDINGS: Three radiographic views of the right hand were obtained. There is acute comminuted intra-articular fracture involving the distal margins of the 5th metacarpal. There is no significant displacement of fracture fragments. Overlying soft tissue swelling is noted. Remaining osseous structures are intact. Joint spaces are maintained. IMPRESSION: Acute fracture of the distal 5th metacarpal, as described above. Dictated by: Dictated on workstation # [id number]
== END 2021-07-18 22:51 | disposition home or self-care (01) ==
LOC: EDUNIT# 21:53 → ER 21:55
DX: S62.396A Other fracture of fifth metacarpal bone, right hand, initial encounter for closed fracture (principal); F17.200 Nicotine dependence, unspecified, uncomplicated; W22.03XA Walked into furniture, initial encounter
CPT/HCPCS: 29125; 73130

== ENCOUNTER → 2021-08-05 | Outpatient (CLI) | payer SELFPAY ==
[~2021-08-05] MED LIST changes: +ACHD5005 PO
--- NOTE | 2021-08-05 11:26 | Diagnostic Imaging Report ---
INDICATION: Fifth metacarpal fracture. TECHNIQUE: AP, oblique and lateral views of the right hand are obtained with comparison made to study of 07/18/2021. FINDINGS: The nondisplaced comminuted fracture involving the distal aspect of fifth metacarpal has not appreciably changed. This does contact the medial articular surface of the fifth metacarpal. No significant callus is appreciated. IMPRESSION: Comminuted intra-articular fracture of distal fifth metacarpal has a similar appearance without significant bridging callus at this time. Dictated by: Dictated on workstation # [id number]
== END ==
LOC: ORTHO 13:00
PROVIDERS: ATTEND Orthopaedic Surgery
DX: S62.306A Unspecified fracture of fifth metacarpal bone, right hand, initial encounter for closed fracture (principal); X58.XXXA Exposure to other specified factors, initial encounter
CPT/HCPCS: 73130

== ENCOUNTER 2021-08-26 22:30 | Emergency (ER) | payer SELFPAY ==
[~2021-08-26] VITALS: Ht 182.8 cm; Wt 99.9 kg
[2021-08-26] MEDS ORDERED: BSS 15 ML IR ONE (22:45)
[2021-08-26] MEDS ORDERED: TETRACAINE 0.5% OPHTH SOLN 4 ML BTL (SINGLE DOSE ONLY) OU ONE (22:45)
[2021-08-26] MEDS ORDERED: FLUORESCEIN (FLUOR-I-STRIPS) 1 MG STRP OU ONE (22:45)
[2021-08-26 22:50] VITALS: BP 162/94
--- NOTE | 2021-08-26 22:50 | ED EENT ---
History of Present Illness General Chief Complaint: Eye Problems Stated Complaint: SOMETHING IN R EYE History of Present Illness Date Seen by Provider: Aug 26, 2021 Time Seen by Provider: 22:44 Initial Comments 40-year-old male is here with complaints of right eye pain after he had a small branch poked his right eye from the log he was carrying today. Patient states now his right eye feels irritated and is watering. Denies blurry vision, bleeding. Allergies and Home Medications Allergies Coded Allergies: No Known Drug Allergies (Unverified , 04/25/18) Patient Home Medication List Home Medication List Reviewed: Yes Aspirin (Aspir 81) 81 Mg Tablet.dr, 81 MG PO, (Reported) Entered as Reported by: WILLEM GRACE on 08/31/172141 Hydrocodone/Acetaminophen (Hydrocodone-Acetamin 5-325 mg) 1 Each Tablet, 1 TAB PO Q4H PRN for PAIN-MODERATE (5-7) Prescribed by: ALAN VELA on 07/18/212234 Lisinopril (Lisinopril) 20 Mg Tablet, (Reported) Entered as Reported by: TICO ARTEAGA on 08/08/162155 Losartan Potassium (Losartan Potassium) 25 Mg Tablet, Unknown Dose PO DAILY, (Reported) Entered as Reported by: DEANNA PARKER on 04/25/181744 Metoprolol Tartrate (Metoprolol Tartrate) 25 Mg Tablet, 25 MG PO BID Prescribed by: ISHAN HAQ on 06/28/18 184 Omeprazole (Omeprazole) 20 Mg Capsule.dr, Unknown Dose PO, (Reported) Entered as Reported by: DEANNA PARKER on 04/25/18 174 Omeprazole (Omeprazole) 40 Mg Capsule., 40 MG PO DAILY Prescribed by: CARLA SUAREZ on 02/06/192148 Ondansetron (Ondansetron Odt) 4 Mg Tab.rapdis, 4 MG PO Q6H PRN for NAUSEA/VOMITING Prescribed by: CARLA SUAREZ on 02/06/192148 Paroxetine HCl (Paroxetine Cr) 25 Mg Tab.er.24h, Unknown Dose PO, (Reported) Entered as Reported by: WILLEM GRACE on 08/31/172141 Paroxetine HCl (Paroxetine Cr) 12.5 Mg Tab.er.24h, Unknown Dose PO, (Reported) Entered as Reported by: DEANNA PARKER on 04/25/181744 Sulfamethoxazole/Trimethoprim (Bactrim Ds Tablet) 1 Each Tablet, 1 EACH PO BID Prescribed by: ROLA MORENO on 11/12/202018 Tizanidine HCl (Tizanidine HCl) 4 Mg Capsule, Unknown Dose PO, (Reported) Entered as Reported by: DEANNA PARKER on 04/25/181744 Review of Systems Review of Systems Constitutional: no symptoms reported Eyes: Inflammation, Pain Ears: No Symptoms Reported Nose: no symptoms reported Mouth: no symptoms reported Throat: no symptoms reported Respiratory: no symptoms reported Cardiovascular: no symptoms reported Gastrointestinal: no symptoms reported Musculoskeletal: no symptoms reported Skin: no symptoms reported Neurological: No Symptoms Reported Hematologic/Lymphatic: No Symptoms Reported Past Melssil-Azxsrh-Cbzptg Hx Immunizations Up To Date Tetanus Booster (TDap): Unknown Seasonal Allergies Seasonal Allergies: No Past Medical History Surgeries: Yes (HERNIA REPAIR) Abdominal, Tonsillectomy Respiratory: No Cardiac: Yes High Cholesterol, Hypertension Neurological: No Reproductive Disorders: No Sexually Transmitted Disease: No Genitourinary: No Gastrointestinal: Yes Gastrointestinal Bleed Musculoskeletal: No Endocrine: No HEENT: No Cancer: No Psychosocial: Yes Anxiety, Depression Integumentary: No Blood Disorders: No Family Medical History Heart Disease, DVT/PE, Diabetes, Hypertension Physical Exam Vital Signs Vital Signs - First Documented 08/26/21 22:50 Temp 37.5 Pulse 90 Resp 16 B/P (MAP) 162/94 (116) Pulse Ox 97 Height, Weight, BMI Height: 6'0" Weight: 210lbs. oz. 95.538283ev; 29.00 BMI Method:Stated General Appearance: WD/WN, no apparent distress Eyes: right eye PERRL, right eye EOMI, right eye corneal abrasion (On Fluorescin test: corneal abrasion seen at 8:00 position, no foreign body) Nose: normal inspection Mouth/Throat: normal mouth inspection Neck: full range of motion, normal inspection Neurologic/Psychiatric: alert, oriented x 3 Procedures/Interventions Eye : Location: right eye Eye Irrigated w/ Saline (ccs): 20 Anesthesia (gtts): Tetracaine Progress/Procedure Conclusion No foreign body - Pagan lamp and fluorescin test: 8:00 corneal abrasion Progress/Results/Core Measures Results/Orders My Orders Orders - JASON PEREZ MD Tetracaine 0.5% Ophth Yuridia Sdv (Tetracai (08/26/21 22:45) Fluorescein Strips (Xwfxe-N-Jliirv) (08/26/21 22:45) Balanced Salt Irrigation Soln (Bss Irrig (08/26/21 22:45) Vital Signs/I&O 08/26/21 22:50 Temp 37.5 Pulse 90 Resp 16 B/P (MAP) 162/94 (116) Pulse Ox 97 Progress Progress Note : Progress Note 1. RIGHT EYE INJURY: CORNEAL ABRASION - NS irrigation - Pagan lamp: Fluorescin strip: corneal abrasion at 8:00 position - Prescription for erythromycin ointment/ NSAID prn pain - F/u with Ethylbenzene Converter Operator/ PCP in 3 to 5 days Departure Impression Primary Impression: Corneal abrasion Qualified Codes: S05.01XA - Injury of conjunctiva and corneal abrasion without foreign body, right eye, initial encounter Disposition: HOME, SELF-CARE Condition: Improved Departure-Patient Inst. Referrals: [facility] (PCP/Family) Primary Care Physician Patient Instructions: Corneal Abrasion Add. Discharge Instructions: - Prescription for erythromycin ointment/ NSAID prn pain - F/u with Ethylbenzene Converter Operator/ PCP in 3 to 5 days All discharge instructions reviewed with patient and/or family. Voiced understanding. Scripts Erythromycin Base (Erythromycin Opthalmic Ointment) 5 Mg/Gram (0.5 %) Oint...g. 0 OP Q4H for 7 Days, #1 EA 1/2 inch Prov: JASON PEREZ MD 08/26/21 JASON PEREZ MD Aug 26, 2021 22:50
[2021-08-26] MEDS ORDERED: ERYT1OIN6 OP (23:40)
== END 2021-08-27 00:01 | disposition home or self-care (01) ==
LOC: EDUNIT# 22:30 → ER 22:34
DX: S05.01XA Injury of conjunctiva and corneal abrasion without foreign body, right eye, initial encounter (principal); W45.8XXA Other foreign body or object entering through skin, initial encounter
CPT/HCPCS: 99281

== ENCOUNTER 2022-10-20 23:04 | Emergency (ER) | payer OTHER ==
[~2022-10-20] VITALS: Ht 182.9 cm; Wt 94.0 kg
[~2022-10-20 23:04] MED LIST changes: +ERYT1OIN6 OP; -PARO25TA14 PO; +PARO25TA20 PO
[2022-10-20 23:10] VITALS: BP 175/103
[2022-10-20] MEDS ORDERED: ASPIRIN 81 MG CHEW (CHILDREN'S ASA) PO ONE (23:15)
[2022-10-20] MEDS ORDERED: NITROGLYCERIN 0.4 MG SL TABS BTL 25'S SL PRN (23:15)
[2022-10-20] MEDS ORDERED: NITROGLYCERIN 2% OINT 1 GM UNIT DOSE PACKET TOP ONE (23:30)
[2022-10-20 23:33] LABS: BASOPHILS # (AUTO) 0.1 10^3/uL (0.0-0.1); BASOPHILS % (AUTO) 1 % (0-10); EOSINOPHILS # (AUTO) 0.3 10^3/uL (0.0-0.3); EOSINOPHILS % (AUTO) 3 % (0-10); HEMATOCRIT 40 % (40-54); HEMOGLOBIN 14.6 g/dL (13.3-17.7); LYMPHOCYTES # (AUTO) 3.3 10^3/uL (1.0-4.0); LYMPHOCYTES % (AUTO) 29 % (12-44); MEAN CORPUSCULAR HEMOGLOBIN 30 pg (25-34); MEAN CORPUSCULAR HGB CONC 37 g/dL (32-36); MEAN CORPUSCULAR VOLUME 82 fL (80-99); MONOCYTES % (AUTO) 9 % (0-12); NEUTROPHILS # (AUTO) 6.6 10^3/uL (1.8-7.8); NEUTROPHILS % (AUTO) 58 % (42-75); PLATELET COUNT 351 10^3/uL (130-400); WHITE BLOOD COUNT 11.4 10^3/uL (4.3-11.0)
[2022-10-20 23:45] LABS: PROTHROMBIN TIME PATIENT 13.3 SEC (12.2-14.7)
[2022-10-20 23:50] LABS: FIBRIN DEGRADATION PRODUCTS 0.24 UG/ML (0.00-0.49)
[2022-10-20 23:55] LABS: ALANINE AMINOTRANSFERASE 37 U/L (0-55); ALBUMIN 4.7 GM/DL (3.2-4.5); ALKALINE PHOSPHATASE 98 U/L (40-136); AMYLASE 48 U/L (25-125); BILIRUBIN,TOTAL 0.5 MG/DL (0.1-1.0); BUN/CREATININE RATIO 9; CALCIUM 9.7 MG/DL (8.5-10.1); CARBON DIOXIDE 25 MMOL/L (21-32); CHLORIDE 90 MMOL/L (98-107); CREATINE KINASE 88 U/L (30-200); CREATININE SERUM 0.86 MG/DL (0.60-1.30); GFR ESTIMATED 113; GLUCOSE 97 MG/DL (70-105); LIPASE 44 U/L (8-78); MAGNESIUM 1.9 MG/DL (1.6-2.4); POTASSIUM 4.6 MMOL/L (3.6-5.0); TOTAL PROTEIN 7.9 GM/DL (6.4-8.2)
[2022-10-20 23:57] LABS: SODIUM 124 MMOL/L (135-145)
[2022-10-21 00:02] LABS: CREATINE KINASE MB 0.9 NG/ML (<6.6)
[2022-10-21] MEDS ORDERED: NS IV 1000 ML 1,000 ML IV SCH ×2 (00:15→00:45)
[2022-10-21] MEDS ORDERED: KETOROLAC 30 MG/ML VIAL IVP ONE (01:00)
[2022-10-21] MEDS ORDERED: hydrALAZINE (APESOLINE) 20 MG/ML VIAL IV ONE ×2 (01:00→03:00)
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
[2022-10-21 02:48] LABS: CHLORIDE 94 MMOL/L (98-107); POTASSIUM 4.6 MMOL/L (3.6-5.0)
[2022-10-21 02:50] LABS: GLUCOSE 94 MG/DL (70-105)
[2022-10-21 02:51] LABS: CARBON DIOXIDE 21 MMOL/L (21-32)
[2022-10-21 02:54] LABS: BUN/CREATININE RATIO 10; GFR ESTIMATED 115
[2022-10-21 02:57] LABS: SODIUM 125 MMOL/L (135-145)
[2022-10-21] MEDS ORDERED: NS 100 ML (IVPB) BAG IV ONE (03:30)
[2022-10-21] MEDS ORDERED: IOHEXOL 350 MG/ML 100 ML (OMNIPAQUE 350) VIAL IV ONE (03:30)
[2022-10-21] MEDS ORDERED: HOLD METFORMIN - RECEIVED CONTRAST 20 ML VIAL IV SCH (03:30)
[2022-10-21 03:54] LABS: BILIRUBIN,URINE NEGATIVE (NEGATIVE); CLARITY,URINE CLEAR; COLOR,URINE YELLOW; GLUCOSE, URINE (UA) NEGATIVE (NEGATIVE); KETONES,URINE NEGATIVE (NEGATIVE); LEUKOCYTE ESTERASE ,URINE NEGATIVE (NEGATIVE); NITRITE,URINE NEGATIVE (NEGATIVE); PROTEIN,URINE NEGATIVE (NEGATIVE)
[2022-10-21 04:06] LABS: AMPHETAMINE SCREEN, URINE NEGATIVE (NEGATIVE); BARBITURATE SCREEN URINE NEGATIVE (NEGATIVE); BENZODIAZEPINES SCREEN URINE NEGATIVE (NEGATIVE); CANNABINOID SCREEN, URINE NEGATIVE (NEGATIVE); COCAINE SCREEN URINE NEGATIVE (NEGATIVE); METHADONE STAT NEGATIVE (NEGATIVE); OPIATE SCREEN URINE NEGATIVE (NEGATIVE); OXYCODONE STAT NEGATIVE (NEGATIVE); PROPOXYPHENE STAT NEGATIVE (NEGATIVE); TRICYCLIC ANTIDEPRESSANTS SCRE NEGATIVE (NEGATIVE)
[2022-10-21 04:07] LABS: BACTERIA,URINE NEGATIVE /HPF
--- NOTE | 2022-10-21 05:38 | Diagnostic Imaging Report ---
TECHNIQUE: CTA of the chest was performed with contrast bolus timing optimized for evaluation of the pulmonary arteries. 3-D reformats were obtained and reviewed. Dose reduction techniques were utilized. COMPARISON: Chest radiograph from 10/20/2022. Reason for exam: Chest pain. FINDINGS: This helical CT pulmonary angiogram is diagnostic to the subsegmental level branches of the pulmonary artery and demonstrates no pulmonary emboli. The heart and great vessels are unremarkable. There is no pericardial effusion. There is no axillary, mediastinal, or hilar adenopathy. The lungs demonstrate no consolidation, nodules, or other parenchymal abnormality. No pleural effusion is seen. Osseous structures appear normal. There is hepatic steatosis. IMPRESSION: 1. No acute pulmonary embolus. Negative CT chest. 2. Hepatic steatosis. Dictated by: Dictated on workstation # [id number]
--- NOTE | 2022-10-21 07:05 | Diagnostic Imaging Report ---
EXAMINATION: Chest 1 view HISTORY: Chest pain. COMPARISON: 06/28/2018. FINDINGS: The lung volumes are normal. No focal consolidation is seen. No large pleural effusion or pneumothorax is seen. The cardiomediastinal silhouette is normal in size and contour. No acute osseous abnormality is seen. IMPRESSION: 1. No acute pleuroparenchymal process. Dictated by: Dictated on workstation # [id number]
== END 2022-10-21 05:48 ==
LOC: EDUNIT# 23:04 → ER 23:06
DX: I10 Essential (primary) hypertension (principal); E87.1 Hypo-osmolality and hyponatremia; F17.210 Nicotine dependence, cigarettes, uncomplicated
CPT/HCPCS: 36415; 71045; 71275; 80048; 80053; 80306; 81000; 82150; 82550; 82553; 83690; 83735; 83874; 83880; 84484; 85025; 85379; 85610; 85730; 93005; 93041